=== PATIENT | female | born 1970 | race Caucasian/White ===

== ENCOUNTER → 2017-09-01 14:57 | Outpatient (CLI) | payer BC, SELFPAY ==
[2017-09-01 15:47] LABS: Absolute Lymphocyte Count 2.11 X10^3/ul (0.83-4.51); Absolute Neutrophil Count 5.8 X10^3/uL (2.0-7.7); Basophil# 0.03 X10^3/uL; Basophil% 0.4 % (0-1); Eosinophil# 0.06 X10^3/uL; Eosinophils% 0.7 % (0-5); Hematocrit 38.4 % (37-47); Lymphocyte # 2.11 X10^3/ul (4.0); Lymphocyte % 24.6 % (19-41); Mean Corp Hgb Conc 31.3 g/gl (32-36); Mean Corpuscular Hgb 28.2 pg (27.0-32.0); Mean Corpuscular Volume 90.4 fL (81-99); Mean Platelet Vol. 9.3 fl (6.2-12.0); Monocyte# 0.57 X10^3/uL; Monocyte% 6.7 % (0-10); Neutrophil % 67.6 % (47-70); POSITIVE COUNT NO; POSITIVE DIFFERENTIAL NO; POSITIVE MORPHOLOGY NO; Platelet Count 334 K/mm3 (150-450); RBC Distribution Width SD 48.7 fl (35.1-43.9); Red Blood Count 4.25 M/mm3 (4.2-5.4); White Blood Count 8.6 K/mm3 (4.4-11.0)
[2017-09-01 16:06] LABS: ALB/GLOB Ratio 0.9 RATIO (0.9-2.4); AST(SGOT) 10 U/L (15-37); Alanine Aminotransfer ALT/SGPT 14 U/L (13-56); Albumin, Serum 3.5 g/dL (3.2-5.0); Alkaline Phosphatase 63 U/L (45-117); Anion Gap 8 (5-15); BUN 11 mg/dL (7-18); BUN/Creat Ratio 16.6 RATIO (10-20); Calcium,Total 8.6 mg/dL (8.5-10.1); Chloride 99 mmol/L (98-107); Creatinine, Serum 0.66 mg/dL (0.55-1.02); EST Glomerular Filtration Rate 103 mL/min (>60); Est Glom Filt Rate - Afr Amer 124 mL/min (>60); Glucose 84 mg/dL (74-106); Potassium 4.1 mmol/L (3.5-5.1); Protein, Total 7.5 g/dL (6.4-8.2); Sodium Level 135 mmol/L (136-145)
== END ==
PROVIDERS: Family Provider Family Medicine; PCP Family Medicine; Visit Provider Internal Medicine Rheumatology
DX: M05.79 Rheumatoid arthritis with rheumatoid factor of multiple sites without organ or systems involvement (principal); Z79.899 Other long term (current) drug therapy; M21.40 Flat foot [pes planus] (acquired), unspecified foot
CPT/HCPCS: 36415; 80053; 85025

== ENCOUNTER → 2017-11-09 16:38 | Outpatient (CLI) | payer BC, SELFPAY ==
[2017-11-09 18:00] LABS: Absolute Lymphocyte Count 2.11 X10^3/ul (0.83-4.51); Absolute Neutrophil Count 7.8 X10^3/uL (2.0-7.7); Basophil# 0.03 X10^3/uL; Basophil% 0.3 % (0-1); Eosinophils% 0.9 % (0-5); Hematocrit 34.9 % (37-47); Hemoglobin 11.1 g/dl (12.0-15.0); Lymphocyte # 2.11 X10^3/ul (4.0); Lymphocyte % 19.4 % (19-41); Mean Corp Hgb Conc 31.8 g/gl (32-36); Mean Corpuscular Hgb 29.5 pg (27.0-32.0); Mean Corpuscular Volume 92.8 fL (81-99); Mean Platelet Vol. 9.6 fl (6.2-12.0); Monocyte# 0.87 X10^3/uL; Neutrophil # 7.75 X10^3/uL (2.7-7.7); Neutrophil % 71.1 % (47-70); Platelet Count 359 K/mm3 (150-450); RBC Distribution Width CV 14.6 % (11.6-14.6); RBC Distribution Width SD 47.1 fl (35.1-43.9); Red Blood Count 3.76 M/mm3 (4.2-5.4); White Blood Count 10.9 K/mm3 (4.4-11.0)
[2017-11-09 18:17] LABS: POSITIVE COUNT NO; POSITIVE DIFFERENTIAL NO; POSITIVE MORPHOLOGY NO
== END ==
PROVIDERS: Family Provider Family Medicine; PCP Family Medicine; Visit Provider Internal Medicine Rheumatology
DX: M05.79 Rheumatoid arthritis with rheumatoid factor of multiple sites without organ or systems involvement (principal); Z79.899 Other long term (current) drug therapy; M21.40 Flat foot [pes planus] (acquired), unspecified foot
CPT/HCPCS: 36415; 80053; 85025

== ENCOUNTER → 2017-11-10 16:50 | Outpatient (CLI) | payer BC, SELFPAY ==
[2017-11-10 18:36] LABS: AST(SGOT) 16 U/L (15-37); Alanine Aminotransfer ALT/SGPT 18 U/L (13-56); Albumin, Serum 3.7 g/dL (3.2-5.0); Alkaline Phosphatase 82 U/L (45-117); Anion Gap 10 (5-15); BUN 11 mg/dL (7-18); BUN/Creat Ratio 15.3 RATIO (10-20); Calcium,Total 8.9 mg/dL (8.5-10.1); Chloride 99 mmol/L (98-107); Creatinine, Serum 0.72 mg/dL (0.55-1.02); EST Glomerular Filtration Rate 94 mL/min (>60); Est Glom Filt Rate - Afr Amer 113 mL/min (>60); Globulin 3.6 g/dL (2.2-4.2); Glucose 76 mg/dL (74-106); Potassium 4.4 mmol/L (3.5-5.1); Protein, Total 7.3 g/dL (6.4-8.2); Sodium Level 138 mmol/L (136-145)
== END ==
PROVIDERS: Family Provider Family Medicine; PCP Family Medicine; Visit Provider Internal Medicine Rheumatology
DX: M05.79 Rheumatoid arthritis with rheumatoid factor of multiple sites without organ or systems involvement (principal); Z79.899 Other long term (current) drug therapy; M21.40 Flat foot [pes planus] (acquired), unspecified foot
CPT/HCPCS: 36415; 80053

== ENCOUNTER → 2018-07-06 08:22 | Outpatient (CLI) | payer BC, SELFPAY ==
--- NOTE | 2018-07-06 08:25 | BI_ITS ---
MAMMOGRAPHY - BILATERAL SCREENING REASON FOR EXAM: Female, 47 years old. Routine annual screening examination. PERTINENT HISTORY: Aunt with breast cancer. Remote bilateral breast reduction surgery. TECHNIQUE: Digital bilateral breast leonel (3D mammographic acquisition) in the CC and MLO projections. 2-D mediolateral oblique (MLO) and craniocaudad (CC) views of both breasts were obtained. CAD: Full Field Digital Mammography with Computer Added Detection was performed. COMPARISON: Comparison is made with prior study dated March 07, 2017. FINDINGS: Breast Composition: There are scattered areas of fibroglandular density. There are no dominant masses or suspicious calcifications. Stable appearance of the small bilateral axillary lymph nodes. Stable 6 mm x 7 mm well-defined nodule in the deep midportion of the right breast. This is unchanged. On prior sonogram, this was demonstrated to be a small lymph node. No other significant abnormalities are identified. There has been no significant change since the prior study. BI/SCREENING MAMM (CAD), BILAT IMPRESSION: Stable bilateral screening mammogram. Yearly follow-up mammogram recommended. (A) ASSESSMENT CATEGORY: BIRADS Category 2: Benign. A letter regarding these results will be sent to the patient by the facility within 30 days. Approximately 10% of breast cancers are not detected by mammography. A normal mammogram should not delay biopsy of a clinically suspicious abnormality. [id number] Electronically Signed: Matteo Garrido MD at 10:22 EST Tel [phone], Service support ,
--- OUTSIDE RECORDS SUMMARY | 2018-08-21 20:16 | XMS RPT_ITS ---
:1970 Author Organization [facility] Care Team Providers Name Role Phone Laurie Cueva Attending Unavailable Laurie Cuvea Primary Care Unavailable Candace Sprague Attending Unavailable Laurie Cueva Primary Care Unavailable Candace Sprague Attending Unavailable Candace Sprague Referring Unavailable Laurie Cueva Primary Care Unavailable Candace Sprague Attending Unavailable Laurie Cueva Primary Care Unavailable PROBLEMS PROBLEMS DATE TYPE CONDITION / CODE ATTENDING STATUS SOURCE 11/09/2017 Unknown Z79.899 - Other Candace Sprague Active [facility] (current[facility] drug Hospital therapy / Repository Z79.899(ICD-10) 11/09/2017 Unknown M05.79 - Candace Sprague Active [facility] 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 Repository of multiple sites without organ or systems involvement / M05.79(ICD-10) 11/09/2017 Unknown M21.40 - Flat Candace Sprague Active [facility] [facility] [pes planus] Community (acquired), Hospital unspecified foot Repository / M21.40(ICD-10) PROCEDURES PROCEDURES No Procedure Records FoundRESULTS RESULTS SCREENING MAMM (CAD), Observed: 07/06/2018 Status: F Source: [place] 8:25 AM [facility] REPOSITORY [facility] Imaging Services [address] [address] SCREENING MAMM (CAD), BILAT MR#: [id number] Acct: [id number] Name: STEPHAN ENGLE Rep #: [id number] : 1970 F 47 From: Matteo Garrido MD PCP: Laurie Cueva MD Status: REG CLI Study: SCREENING MAMM (CAD), BILAT Date of Exam: 07/06/18 Exam# [id number] Ordering Dr: Laurie Cueva MD MAMMOGRAPHY - BILATERAL SCREENING REASON FOR EXAM: Female, 47 years old. Routine annual screening examination. PERTINENT HISTORY: Aunt with breast cancer. Remote bilateral breast reduction surgery. TECHNIQUE: Digital bilateral breast leonel (3D mammographic acquisition) in the CC and MLO projections. 2-D mediolateral oblique (MLO) and craniocaudad (CC) views of both breasts were obtained. CAD: Full Field Digital Mammography with Computer Added Detection was performed. COMPARISON: Comparison is made with prior study dated March 07, 2017. FINDINGS: Breast Composition: There are scattered areas of fibroglandular density. There are no dominant masses or suspicious calcifications. Stable appearance of the small bilateral axillary lymph nodes. Stable 6 mm x 7 mm well-defined nodule in the deep midportion of the right breast. This is unchanged. On prior sonogram, this was demonstrated to be a small lymph node. No other significant abnormalities are identified. There has been no significant change since the prior study. BI/SCREENING MAMM (CAD), BILAT IMPRESSION: Stable bilateral screening mammogram. Yearly follow-up mammogram recommended. (A) ASSESSMENT CATEGORY: BIRADS Category 2: Benign. A letter regarding these results will be sent to the patient by the facility within 30 days. Approximately 10% of breast cancers are not detected by mammography. A normal mammogram should not delay biopsy of a clinically suspicious abnormality. [id number] Electronically Signed: Matteo Garrido MD at 10:22 EST Tel [phone], Service support , CC: Laurie Cueva MD Soil Engineer: Signed COMPREHENSIVE METABOLIC Collected: 11/10/2017 Status: F Source: LY [place] 4:57 PM [facility] REPOSITORY Order Comment: REDRAW DO NOT CHARGE VRO TYPE CODE TESTS RESULT OUT OF RANGE REFERENCE UNITS LAB L501.0100 74-106 mg/dL Normal GLU 76 Result Comment: Please note revised GLUCOSE reference range effective 2017. LAB L501.1000 7-18 mg/dL Normal BUN 11 LAB L501.1100 0.55-1.02 mg/dL Normal CREAT,SERUM 0.72 Result Comment: The validity of the calculated GFR AND GFRAA in patients over 70 years has not been determined. Clinical correlation is essential. LAB L501.1110 >60 mL/min Normal EST GFR 94 Result Comment: Non- GFR Calc LAB L501.1115 >60 mL/min Normal EST GFR - AA 113 Result Comment: GFR Calc LAB L501.1300 10-20 RATIO Normal BUN/CRE 15.3 LAB L501.1500 6.4-8.2 g/dL T Normal PROT 7.3 LAB L501.1800 3.2-5.0 g/dL Normal ALB 3.7 LAB L501.1950 2.2-4.2 g/dL Normal GLOB 3.6 LAB L501.2000 0.9-2.4 RATIO Normal A/G 1.0 LAB L501.2200 8.5-10.1 mg/dL CA Normal 8.9 LAB L501.4100 15-37 U/L Normal AST 16 LAB L501.4305 45-117 U/L Normal ALK P 82 LAB L501.4405 13-56 U/L Normal ALT 18 LAB L501.4600 0.20-1.00 mg/dL Low T BILI 0.10 LAB L501.5300 136-145 mmol/L NA Normal 138 LAB L501.5600 3.5-5.1 mmol/L K Normal 4.4 LAB L501.5900 98-107 mmol/L CL Normal 99 LAB L501.6100 21.0-32.0 mmol/L Normal CO2 29.0 LAB L501.6200 5-15 Normal GAP 10 Performed By: #### L500.4050 #### [facility] [address] [place], [address] CBC W/DIFF, AUTOMATED Collected: 11/09/2017 Status: F Source: [place] 4:43 PM [facility] REPOSITORY TYPE CODE TESTS RESULT OUT OF RANGE REFERENCE UNITS LAB L100.1000 4.4-11.0 K/mm3 Normal WBC 10.9 LAB L100.1200 4.2-5.4 M/mm3 Low RBC 3.76 LAB L100.1300 12.0-15.0 g/dl Low HGB 11.1 LAB L100.1400 37-47 % Low HCT 34.9 LAB L100.1500 81-99 fL Normal MCV 92.8 LAB L100.1600 27.0-32.0 pg Normal MCH 29.5 LAB L100.1700 32-36 g/gl Low MCHC 31.8 LAB L100.1810 11.6-14.6 % Normal RDW CV 14.6 LAB L100.1820 35.1-43.9 fl High RDW SD 47.1 LAB L100.1900 150-450 K/mm3 Normal PLT 359 LAB L100.2000 6.2-12.0 fl Normal MPV 9.6 LAB L100.2100 47-70 % High NEUT% 71.1 LAB L100.2200 19-41 % Normal LY% 19.4 LAB L100.2300 0-10 % Normal MONO% 8.0 LAB L100.2400 0-5 % Normal EO% 0.9 LAB L100.2500 0-1 % Normal BASO% 0.3 LAB L100.2550 0.0-0.9 % Normal IM GRAN % 0.300 Result Comment: IG% - Immature Granulocytes (promyelocytes, myelocytes and metamyelocytes) > 1% indicates that a LEFT SHIFT is Present. LAB L100.2620 2.0-7.7 X10 3/uL High Absolute Neut 7.8 LAB L100.2720 0.83-4.51 X10 3/ul Normal Absolute Lymph 2.11 Performed By: #### L100.0100 #### [facility] [place], [address] CBC W/DIFF, AUTOMATED Collected: 09/01/2017 Status: F Source: [place] 3:00 PM [facility] REPOSITORY TYPE CODE TESTS RESULT OUT OF RANGE REFERENCE UNITS LAB L100.1000 4.4-11.0 K/mm3 Normal WBC 8.6 LAB L100.1200 4.2-5.4 M/mm3 Normal RBC 4.25 LAB L100.1300 12.0-15.0 g/dl Normal HGB 12.0 LAB L100.1400 37-47 % Normal HCT 38.4 LAB L100.1500 81-99 fL Normal MCV 90.4 LAB L100.1600 27.0-32.0 pg Normal MCH 28.2 LAB L100.1700 32-36 g/gl Low MCHC 31.3 LAB L100.1810 11.6-14.6 % High RDW CV 15.0 LAB L100.1820 35.1-43.9 fl High RDW SD 48.7 LAB L100.1900 150-450 K/mm3 Normal PLT 334 LAB L100.2000 6.2-12.0 fl Normal MPV 9.3 LAB L100.2100 47-70 % Normal NEUT% 67.6 LAB L100.2200 19-41 % Normal LY% 24.6 LAB L100.2300 0-10 % Normal MONO% 6.7 LAB L100.2400 0-5 % Normal EO% 0.7 LAB L100.2500 0-1 % Normal BASO% 0.4 LAB L100.2550 0.0-0.9 % Normal IM GRAN % 0.000 Result Comment: IG% - Immature Granulocytes (promyelocytes, myelocytes and metamyelocytes) > 1% indicates that a LEFT SHIFT is Present. LAB L100.2620 2.0-7.7 X10 3/uL Normal Absolute Neut 5.8 LAB L100.2720 0.83-4.51 X10 3/ul Normal Absolute Lymph 2.11 Performed By: #### L100.0100 #### [facility] [place], [address] COMPREHENSIVE METABOLIC Collected: 09/01/2017 Status: F Source: LY [facility] 3:00 PM [facility] REPOSITORY TYPE CODE TESTS RESULT OUT OF RANGE REFERENCE UNITS LAB L501.0100 74-106 mg/dL Normal GLU 84 Result Comment: Please note revised GLUCOSE reference range effective 2017. LAB L501.1000 7-18 mg/dL Normal BUN 11 LAB L501.1100 0.55-1.02 mg/dL Normal CREAT,SERUM 0.66 Result Comment: The validity of the calculated GFR AND GFRAA in patients over 70 years has not been determined. Clinical correlation is essential. LAB L501.1110 >60 mL/min Normal EST GFR 103 Result Comment: Non- GFR Calc LAB L501.1115 >60 mL/min Normal EST GFR - AA 124 Result Comment: GFR Calc LAB L501.1300 10-20 RATIO Normal BUN/CRE 16.6 LAB L501.1500 6.4-8.2 g/dL T Normal PROT 7.5 LAB L501.1800 3.2-5.0 g/dL Normal ALB 3.5 LAB L501.1950 2.2-4.2 g/dL Normal GLOB 4.0 LAB L501.2000 0.9-2.4 RATIO Normal A/G 0.9 LAB L501.2200 8.5-10.1 mg/dL CA Normal 8.6 LAB L501.4100 15-37 U/L Low AST 10 LAB L501.4305 45-117 U/L Normal ALK P 63 LAB L501.4405 13-56 U/L Normal ALT 14 Result Comment: Please note revised ALT reference range effective 2017. LAB L501.4600 0.20-1.00 mg/dL Normal T BILI 0.20 LAB L501.5300 136-145 mmol/L Low NA 135 LAB L501.5600 3.5-5.1 mmol/L Normal K 4.1 LAB L501.5900 98-107 mmol/L Normal CL 99 LAB L501.6100 21.0-32.0 mmol/L Normal CO2 28.0 LAB L501.6200 5-15 Normal GAP 8 Performed By: #### L500.4050 #### [facility] [address] [place], [address] ALLERGIES ALLERGIES DATE TYPE / CODE NAME / CODE REACTION SEVERITY SOURCE 10/19/2016 Drug morphine/F00 Other Unknown [facility] Allergy/4160 [id number]([facility] 79893(SNOMED RM) Repository CT) 10/18/2016 Drug codeine/F006 Other Unknown [facility] Allergy/4160 016085([facility] [address]1965(SNOMED M) Repository CT) ENCOUNTERS ENCOUNTERS ADMIT/DISCHARGE ACCOUNT ADMITTING ENCOUNTER LOCATION SOURCE NUMBER CLASS 07/06/2018 [id number] Ambulatory [place] [facility] 6 [facility] ing:OPBI Repository 11/10/2017 [id number] Ambulatory [facility] [place] 5 [facility] ing:MTLAB Repository 11/09/2017 [id number] Ambulatory [facility] [place] 8 [facility] ing:MTLAB Repository 09/01/2017 [id number] Ambulatory [place] [facility] 7 [facility] ing:MFPLAB Repository PAYERS PAYERS ENCOUNTER GUARANTOR PAYER SUBSCRIBER SOURCE 07/06/2018 STEPHAN Garduno Primary STEPHAN Garduno [place] [id number] Insurance:ANTHEMPolic WHALEYDOB: [facility] [place] y [place]: [id number] [id number] Repository [address]Ynn: [phone] bridget Date:[id number] [phone] ([facility] [address] [place] [address]LW: 07/06/2018 Secondary NOT GIVENUNK Ly Insurance:SELF PAY [facility] Number: Effective Repository Date:2018-05-23 11/10/2017 STEPHAN Garduno Primary STEPHAN D Ly [id number] Insurance:ANTHEMPolic WHALEYDOB: [facility] y Number: [id number] [id number] Repository [address]Bed: [phone] bridget Date:[id number] [phone] () [address], [place] [address]EB: 11/10/2017 Secondary NOT GIVENUNK Ly Insurance:SELF PAY [facility] Number: Effective Repository Date:2017-11-10 11/09/2017 STEPHAN D Primary STEPHAN D Ly [id number] Insurance:ANTHEMPolic WHALEYDOB: [facility] [place] y Number: [id number] [id number] Repository [address]Ker: [phone] bridget Date:[id number] [phone] () [address], [place] [address]CC: 11/09/2017 Secondary NOT GIVENUNK [place] Insurance:SELF PAY [facility] Number: Effective Repository Date:2017-11-09 09/01/2017 Stephan [id number] Primary Stephan WhaleyDOB: [place] Insurance:ANTHEMPolic [id number] Number: [facility] [address]Hbh: (803) [id number] Repository [phone] () bridget Date:6682-14-97XS [address], [place] [address]KC: 09/01/2017 Secondary NOT GIVENUNK [place] Insurance:SELF PAY [facility] Number: Effective Repository Date:2017-09-01
== END ==
PROVIDERS: Family Provider Family Medicine; PCP Family Medicine; Visit Provider Family Medicine
DX: Z12.31 Encounter for screening mammogram for malignant neoplasm of breast (principal)
CPT/HCPCS: 77063; 77067

== ENCOUNTER → 2019-08-15 15:43 | Outpatient (CLI) | payer BC, SELFPAY ==
--- NOTE | 2019-08-15 15:45 | BI_ITS ---
MAMMOGRAPHY - BILATERAL SCREENING REASON FOR EXAM: Female, 48 years old. Routine annual screening examination. PERTINENT HISTORY: Non-contributory. History of bilateral breast reduction surgery. TECHNIQUE: Digital bilateral breast rosas (3D mammographic acquisition) in the CC and MLO projections. 2-D mediolateral oblique (MLO) and craniocaudad (CC) views of both breasts were obtained. CAD: Full Field Digital Mammography with Computer Added Detection was performed. COMPARISON: Comparison is made with prior study dated July 06, 2018 and March 07, 2017. FINDINGS: Breast Composition: There are scattered areas of fibroglandular density. There are no dominant masses or suspicious calcifications. Stable small bilateral axillary lymph nodes. Stable 6 mm x 7 mm well-defined nodule in the deep midportion of the right breast. No other significant abnormalities are identified. There has been no significant change since the prior study. BI/SCREEN MAMM (CAD) W/ROSAS BILAT IMPRESSION: Stable bilateral screening mammogram. Yearly follow-up mammogram recommended. (A) ASSESSMENT CATEGORY: BIRADS Category 2: Benign. A letter regarding these results will be sent to the patient by the facility within 30 days. Approximately 10% of breast cancers are not detected by mammography. A normal mammogram should not delay biopsy of a clinically suspicious abnormality. [id number] Electronically Signed: Matteo Garrido, at 8:28 EST , Service support ,
== END ==
PROVIDERS: Family Provider Family Medicine; PCP Family Medicine; Referring Provider Family Medicine; Visit Provider Family Medicine
DX: Z12.31 Encounter for screening mammogram for malignant neoplasm of breast (principal)
CPT/HCPCS: 77063; 77067

== ENCOUNTER 2019-08-20 07:30 | Emergency (ER) | payer BC, SELFPAY ==
[2019-08-20 07:31] VITALS: BP 161/92; PULSE 94; RESP 18; TEMP 36.6; O2SAT 98; BMI 43.4
--- NOTE | 2019-08-20 07:44 | ED.VISSUMM ---
- ER Visit Summary Date of Service: 08/20/19 Chief Complaint: Vaginal bleeding History of Present Illness: The patient is a 48 F status post hysterectomy 17 years ago. One ovary removed on a another surgery. Initial hysterectomy was due to abnormal vaginal bleeding. Patient states she is not had any problems recently she had vaginal bleeding and cramping this morning. States she bled about a shot glass worth of blood. She has had minor bleeding within the last 2 years was seen by a gas plant worker at [facility] and it sounds like she had bleeding from her prior vaginal cuff. She is on no blood thinners. She denies any other sources of bleeding or bruising. Physical Examination: Well-appearing middle-aged female. No acute distress. Vital signs are stable afebrile. Accompanied by her at bedside. H EENT exam normal. Neck nontender. Lungs clear to auscultation bilaterally. Heart regular rhythm no murmur. Abdomen is soft. Nondistended. Normal bowel sounds. No peritoneal signs. She has very minimal suprapubic discomfort to palpation. There is no obvious masses. Patient is moving all 4 extremities. No edema. No bruising. Neurologically she is awake alert with no focal motor deficits. Test Results: None Emergency Department Course and Treatment: Pelvic exam will be done with a female nurse present in the room. No vaginal lesions. External exam unremarkable. On speculum exam there is a small amount of blood in the vaginal vault. Not heavy bleeding. No clots. There appear to be a source around 12:00 on the vaginal cuff. I did not see any pulsatile bleeding. It was darker blood. On bimanual exam she status post hysterectomy. It is nontender. There is no masses. Treatment Plan: I spoke to Dr. Anson Sethi of [facility]. She states the patient can follow-up with her. Disposition: Discharge Impression: Vaginal bleeding status post hysterectomy appearing to be coming from the vaginal cuff. This note was generated with OnHand dictation software. It may contain incorrect words, spelling, and punctuation that were not noted in review of the chart prior to signing ED Disposition - Plan for ED Patient: Referrals: Laurie Cueva MD [Primary Care Provider] -
--- NOTE | 2019-08-20 10:41 | DCINST.ED_ITS ---
ED Disposition - Plan for ED Patient: Disposition: Home or Assisted Living Referrals: Alessandra Joel MD [STAFF PHYSICIAN] - As soon as possible Additional Instructions: Tampons for the bleeding. Follow-up with Dr. Anson Sethi of [facility] or Dr. Kolby Ingram whomever he can get in with sooner. If the bleeding gets a lot worse such as clots or you become lightheaded then return to the ER otherwise follow-up for [facility] evaluation
== END 2019-08-20 11:40 | disposition home or self-care (01) ==
PROVIDERS: Emergency Provider Emergency Medicine; PCP Family Medicine
DX: N93.9 Abnormal uterine and vaginal bleeding, unspecified (principal); Z90.710 Acquired absence of both cervix and uterus; M19.90 Unspecified osteoarthritis, unspecified site
CPT/HCPCS: 99282

== ENCOUNTER → 2019-08-22 13:29 | Outpatient (CLI) | payer BC, SELFPAY ==
[2019-08-20 07:31] VITALS: BMI 43.4
[2019-08-22 15:41] LABS: Hematocrit 39.3 % (37-47); Hemoglobin 12.4 g/dL (12.0-15.0); Mean Corp Hgb Conc 31.6 g/dL (32-36); Mean Corpuscular Hgb 27.8 pg (27.0-32.0); Mean Corpuscular Volume 88.1 fL (81-99); Mean Platelet Vol. 9.4 fl (6.2-12.0); Platelet Count 365 K/mm3 (150-450); RBC Distribution Width CV 13.2 % (11.6-14.6); RBC Distribution Width SD 42.9 fl (35.1-43.9); Red Blood Count 4.46 M/mm3 (4.2-5.4); White Blood Count 8.6 K/mm3 (4.4-11.0)
[2019-08-24 17:43] LABS: Cancer Antigen 125 46.6 U/mL (0.0-38.1)
== END ==
PROVIDERS: Visit Provider Obstetrics & Gynecology
DX: N83.201 Unspecified ovarian cyst, right side (principal)
CPT/HCPCS: 36415; 85027; 86304

== ENCOUNTER → 2020-06-22 10:02 | Outpatient (CLI) | payer BC, SELFPAY ==
[2020-06-22 12:12] LABS: Absolute Lymphocyte Count 1.86 X10^3/uL (0.83-4.51); Absolute Neutrophil Count 5.7 X10^3/uL (2.0-7.7); Basophil# 0.07 X10^3/uL; Basophil% 0.8 % (0-1); Eosinophil# 0.11 X10^3/uL; Eosinophils% 1.3 % (0-5); Erythrocyte Sedimentation Rate 31 mm/hr (0-20); Hematocrit 40.3 % (37-47); Hemoglobin 12.5 g/dL (12.0-15.0); Lymphocyte # 1.86 X10^3/ul (4.0); Lymphocyte % 22.4 % (19-41); Mean Corpuscular Hgb 27.3 pg (27.0-32.0); Mean Platelet Vol. 9.9 fl (6.2-12.0); Monocyte# 0.54 X10^3/uL; Monocyte% 6.5 % (0-10); NRBC Flagged by Analyzer 0 % (0-5); Neutrophil % 68.8 % (47-70); Platelet Count 334 K/mm3 (150-450); RBC Distribution Width CV 13.4 % (11.6-14.6); RBC Distribution Width SD 43.4 fl (35.1-43.9); Red Blood Count 4.58 M/mm3 (4.2-5.4); White Blood Count 8.3 K/mm3 (4.4-11.0)
[2020-06-22 12:23] LABS: ALB/GLOB Ratio 0.8 RATIO (0.9-2.4); AST(SGOT) 21 U/L (15-37); Alanine Aminotransfer ALT/SGPT 23 U/L (13-56); Albumin, Serum 3.4 g/dL (3.2-5.0); Alkaline Phosphatase 98 U/L (45-117); Anion Gap 6 (5-15); BUN 6 mg/dL (7-18); BUN/Creat Ratio 8.6 RATIO (10-20); Calcium,Total 9.2 mg/dL (8.5-10.1); Chloride 102 mmol/L (98-107); EST Glomerular Filtration Rate 95 mL/min (>60); Est Glom Filt Rate - Afr Amer 115 mL/min (>60); Globulin 4.3 g/dL (2.2-4.2); Glucose 119 mg/dL (74-106); Potassium 3.8 mmol/L (3.5-5.1); Protein, Total 7.7 g/dL (6.4-8.2); Sodium Level 138 mmol/L (136-145)
[2020-06-22 12:59] LABS: Hepatitis B Surface Antibody Non-Reactive; Hepatitis B Surface Antigen Non-Reactive (Nonreactive); Hepatitis C Antibody Non-Reactive (Nonreactive)
[2020-06-24 16:01] LABS: CCP IgG Antibodies 19 units (0-19); Hepatitis B Core AB IgM Negative (Negative)
== END ==
PROVIDERS: PCP Family Medicine; Referring Provider Family Medicine; Visit Provider Internal Medicine Rheumatology
DX: M05.79 Rheumatoid arthritis with rheumatoid factor of multiple sites without organ or systems involvement (principal); Z79.899 Other long term (current) drug therapy; M21.41 Flat foot [pes planus] (acquired), right foot
CPT/HCPCS: 36415; 80053; 85025; 85652; 86140; 86200; 86431; 86705; 86706; 86803; 87340

== ENCOUNTER → 2020-08-10 12:22 | Outpatient (CLI) | payer BC, SELFPAY ==
[2020-08-10 15:48] LABS: Absolute Lymphocyte Count 2.38 X10^3/uL (0.83-4.51); Absolute Neutrophil Count 4.8 X10^3/uL (2.0-7.7); Basophil# 0.06 X10^3/uL; Basophil% 0.8 % (0-1); Eosinophils% 1.3 % (0-5); Hematocrit 39.3 % (37-47); Hemoglobin 12.6 g/dL (12.0-15.0); Lymphocyte # 2.38 X10^3/ul (4.0); Lymphocyte % 30.4 % (19-41); Mean Corp Hgb Conc 32.1 g/dL (32-36); Mean Corpuscular Hgb 27.7 pg (27.0-32.0); Mean Corpuscular Volume 86.4 fL (81-99); Mean Platelet Vol. 9.9 fl (6.2-12.0); Monocyte# 0.45 X10^3/uL; Monocyte% 5.7 % (0-10); NRBC Flagged by Analyzer 0 % (0-5); Neutrophil # 4.82 X10^3/uL (2.7-7.7); Neutrophil % 61.4 % (47-70); Platelet Count 368 K/mm3 (150-450); RBC Distribution Width CV 14.3 % (11.6-14.6); RBC Distribution Width SD 44.3 fl (35.1-43.9); Red Blood Count 4.55 M/mm3 (4.2-5.4); White Blood Count 7.8 K/mm3 (4.4-11.0)
[2020-08-10 16:15] LABS: ALB/GLOB Ratio 0.8 RATIO (0.9-2.4); AST(SGOT) 17 U/L (15-37); Alanine Aminotransfer ALT/SGPT 19 U/L (13-56); Albumin, Serum 3.5 g/dL (3.2-5.0); Alkaline Phosphatase 78 U/L (45-117); Anion Gap 10 (5-15); BUN 9 mg/dL (7-18); BUN/Creat Ratio 10.7 RATIO (10-20); Calcium,Total 9.1 mg/dL (8.5-10.1); Chloride 102 mmol/L (98-107); Creatinine, Serum 0.84 mg/dL (0.55-1.02); EST Glomerular Filtration Rate 77 mL/min (>60); Est Glom Filt Rate - Afr Amer 94 mL/min (>60); Globulin 4.3 g/dL (2.2-4.2); Glucose 188 mg/dL (74-106); Potassium 3.8 mmol/L (3.5-5.1); Protein, Total 7.8 g/dL (6.4-8.2); Sodium Level 137 mmol/L (136-145)
== END ==
PROVIDERS: PCP Family Medicine; Referring Provider Internal Medicine Rheumatology; Visit Provider Internal Medicine Rheumatology
DX: M05.79 Rheumatoid arthritis with rheumatoid factor of multiple sites without organ or systems involvement (principal); Z79.899 Other long term (current) drug therapy; M21.41 Flat foot [pes planus] (acquired), right foot
CPT/HCPCS: 36415; 80053; 85025

== ENCOUNTER → 2020-09-29 16:14 | Outpatient (CLI) | payer BC, SELFPAY ==
--- NOTE | 2020-09-29 16:17 | RAD_ITS ---
STUDY: X-RAY - LEFT FOOT CLINICAL: Female, 49 years old. PAIN TECHNIQUE: 3 view(s) of the foot. COMPARISON: None. FINDINGS: Postsurgical changes of the calcaneus with a single surgical screw. There are irregularities and erosions seen at the insertion of Achilles tendon probably related to previous or chronic Achilles injury. Moderate plantar spur. Normal visualized subtalar, talonavicular, calcaneocuboid, tarsal and tarsometatarsal articulations. Normal metatarsi. Normal metatarsophalangeal joint of the great toe. Normal tibial and fibular sesamoid bones. Normal interphalangeal joint of the great toe. Normal phalanges of the great toe. Normal second through fifth metatarsophalangeal joints. Normal interphalangeal joints and phalanges of the lesser toes. The soft tissue structures are unremarkable. RAD/Foot min 3 Views IMPRESSION: No gross acute fracture or dislocation. Extensive postsurgical changes of the calcaneus probably related to previous Achilles pathology. Electronically Signed: Bartolo Gutierrez MD at 0:02 EST , Service support ,
--- NOTE | 2020-09-29 16:17 | RAD_ITS ---
EXAM: XR CHEST, 2 VIEWS CLINICAL INDICATION: PAIN TECHNIQUE: Frontal and lateral views of the chest. rScriptor report generation technology utilized. COMPARISON: None. FINDINGS: LUNGS AND PLEURAL SPACES: Unremarkable. No consolidation or edema. No pneumothorax. No effusion. HEART: Unremarkable. Cardiac silhouette not enlarged. MEDIASTINUM: Central airways and mediastinal contour are unremarkable. BONES/JOINTS: Unremarkable. SOFT TISSUES: Unremarkable. RAD/Chest PA and Lateral IMPRESSION: No radiographic evidence of acute cardiopulmonary disease. Electronically Signed: Bartolo Gutierrez MD at 0:00 EST , Service support ,
[2020-09-29 17:45] LABS: Absolute Lymphocyte Count 1.62 X10^3/uL (0.83-4.51); Absolute Neutrophil Count 10.2 X10^3/uL (2.0-7.7); Basophil# 0.05 X10^3/uL; Basophil% 0.4 % (0-1); Eosinophil# 0.01 X10^3/uL; Eosinophils% 0.1 % (0-5); Hematocrit 40.2 % (37-47); Hemoglobin 12.4 g/dL (12.0-15.0); Lymphocyte # 1.62 X10^3/ul (4.0); Lymphocyte % 13.1 % (19-41); Mean Corp Hgb Conc 30.8 g/dL (32-36); Mean Corpuscular Hgb 27.4 pg (27.0-32.0); Mean Corpuscular Volume 88.9 fL (81-99); Mean Platelet Vol. 9.3 fl (6.2-12.0); Monocyte% 3.2 % (0-10); NRBC Flagged by Analyzer 0 % (0-5); Neutrophil # 10.21 X10^3/uL (2.7-7.7); Neutrophil % 82.7 % (47-70); Platelet Count 383 K/mm3 (150-450); RBC Distribution Width SD 48.4 fl (35.1-43.9); Red Blood Count 4.52 M/mm3 (4.2-5.4); White Blood Count 12.4 K/mm3 (4.4-11.0)
[2020-09-29 18:20] LABS: ALB/GLOB Ratio 0.9 RATIO (0.9-2.4); AST(SGOT) 21 U/L (15-37); Alanine Aminotransfer ALT/SGPT 21 U/L (13-56); Albumin, Serum 3.8 g/dL (3.2-5.0); Alkaline Phosphatase 83 U/L (45-117); Anion Gap 7 (5-15); BUN 9 mg/dL (7-18); BUN/Creat Ratio 11.2 RATIO (10-20); Chloride 103 mmol/L (98-107); Creatinine, Serum 0.81 mg/dL (0.55-1.02); EST Glomerular Filtration Rate 81 mL/min (>60); Est Glom Filt Rate - Afr Amer 98 mL/min (>60); Globulin 4.1 g/dL (2.2-4.2); Glucose 179 mg/dL (74-106); Potassium 4.1 mmol/L (3.5-5.1); Protein, Total 7.9 g/dL (6.4-8.2); Sodium Level 137 mmol/L (136-145)
[2020-10-03 03:07] LABS: QNTFERON TB Mitogen Value > 10.00 IU/mL (.); QNTFERON TB Nil Value 0.05 IU/mL (.); QNTFERON TB1+ Ag Value 0.06 IU/mL (.); QNTFERON TB2+ Ag Value 0.06 IU/mL (.)
[2020-10-03 08:55] LABS: QNTIFERON TB Positive Criteria Negative (Negative)
== END ==
PROVIDERS: PCP Family Medicine; Referring Provider Internal Medicine Rheumatology; Visit Provider Internal Medicine Rheumatology
DX: M05.79 Rheumatoid arthritis with rheumatoid factor of multiple sites without organ or systems involvement (principal); Z79.899 Other long term (current) drug therapy; M21.41 Flat foot [pes planus] (acquired), right foot
CPT/HCPCS: 36415; 71046; 73630; 80053; 85025; 86480

== ENCOUNTER 2020-11-05 11:20 | Outpatient (RCR) | payer BC, SELFPAY | END 2020-12-29 23:59 | LOC: IMMUN 11:20 | PROVIDERS: PCP Family Medicine; Referring Provider Family Medicine; Visit Provider Family Medicine | DX: Z23 Encounter for immunization (principal) | CPT/HCPCS: 0001A; 0002A; 91300 ==

== ENCOUNTER → 2021-01-08 15:30 | Outpatient (CLI) | payer BC, SELFPAY ==
[2021-01-08 17:25] LABS: Absolute Lymphocyte Count 3.64 X10^3/uL (0.83-4.51); Absolute Neutrophil Count 7.3 X10^3/uL (2.0-7.7); Basophil# 0.08 X10^3/uL; Basophil% 0.7 % (0-1); Eosinophil# 0.09 X10^3/uL; Eosinophils% 0.7 % (0-5); Hematocrit 43.7 % (37-47); Hemoglobin 13.7 g/dL (12.0-15.0); Lymphocyte # 3.64 X10^3/ul (0.83-4.51); Lymphocyte % 30.2 % (19-41); Mean Corp Hgb Conc 31.4 g/dL (32-36); Mean Corpuscular Hgb 28.6 pg (27.0-32.0); Mean Corpuscular Volume 91.2 fL (81-99); Mean Platelet Vol. 9.6 fl (6.2-12.0); Monocyte# 0.84 X10^3/uL; NRBC Flagged by Analyzer 0 % (0-5); Neutrophil # 7.34 X10^3/uL (2.7-7.7); Platelet Count 414 K/mm3 (150-450); RBC Distribution Width SD 46.1 fl (35.1-43.9); Red Blood Count 4.79 M/mm3 (4.2-5.4)
[2021-01-08 17:42] LABS: ALB/GLOB Ratio 0.8 RATIO (0.9-2.4); AST(SGOT) 23 U/L (15-37); Alanine Aminotransfer ALT/SGPT 23 U/L (13-56); Albumin, Serum 3.7 g/dL (3.2-5.0); Alkaline Phosphatase 86 U/L (45-117); Anion Gap 6 (5-15); BUN 9 mg/dL (7-18); BUN/Creat Ratio 11.9 RATIO (10-20); Calcium,Total 9.4 mg/dL (8.5-10.1); Chloride 104 mmol/L (98-107); Creatinine, Serum 0.75 mg/dL (0.55-1.02); EST Glomerular Filtration Rate 87 mL/min (>60); Est Glom Filt Rate - Afr Amer 105 mL/min (>60); Globulin 4.4 g/dL (2.2-4.2); Glucose 90 mg/dL (74-106); Potassium 4.2 mmol/L (3.5-5.1); Protein, Total 8.1 g/dL (6.4-8.2); Sodium Level 139 mmol/L (136-145)
== END ==
PROVIDERS: PCP Family Medicine; Referring Provider Internal Medicine Rheumatology; Visit Provider Internal Medicine Rheumatology
DX: M05.79 Rheumatoid arthritis with rheumatoid factor of multiple sites without organ or systems involvement (principal); M21.41 Flat foot [pes planus] (acquired), right foot; Z79.899 Other long term (current) drug therapy
CPT/HCPCS: 36415; 80053; 85025

== ENCOUNTER → 2021-03-11 12:00 | Outpatient (CLI) | payer BC, SELFPAY ==
[2021-03-11 15:24] LABS: Absolute Lymphocyte Count 2.29 X10^3/uL (0.83-4.51); Absolute Neutrophil Count 8.7 X10^3/uL (2.0-7.7); Basophil# 0.05 X10^3/uL; Basophil% 0.4 % (0-1); Eosinophil# 0.02 X10^3/uL; Eosinophils% 0.2 % (0-5); Hematocrit 42.8 % (37-47); Hemoglobin 13.3 g/dL (12.0-15.0); Lymphocyte # 2.29 X10^3/ul (0.83-4.51); Lymphocyte % 19.8 % (19-41); Mean Corp Hgb Conc 31.1 g/dL (32-36); Mean Corpuscular Hgb 28.7 pg (27.0-32.0); Mean Corpuscular Volume 92.4 fL (81-99); Mean Platelet Vol. 10.2 fl (6.2-12.0); Monocyte# 0.49 X10^3/uL; Monocyte% 4.2 % (0-10); NRBC Flagged by Analyzer 0 % (0-5); Neutrophil # 8.68 X10^3/uL (2.7-7.7); Platelet Count 395 K/mm3 (150-450); RBC Distribution Width CV 14.2 % (11.6-14.6); RBC Distribution Width SD 47.8 fl (35.1-43.9); Red Blood Count 4.63 M/mm3 (4.2-5.4); White Blood Count 11.6 K/mm3 (4.4-11.0)
[2021-03-11 16:02] LABS: ALB/GLOB Ratio 0.9 RATIO (0.9-2.4); AST(SGOT) 20 U/L (15-37); Alanine Aminotransfer ALT/SGPT 26 U/L (13-56); Albumin, Serum 3.7 g/dL (3.2-5.0); Alkaline Phosphatase 86 U/L (45-117); Anion Gap 8 (5-15); BUN 7 mg/dL (7-18); BUN/Creat Ratio 8.8 RATIO (10-20); Calcium,Total 9.1 mg/dL (8.5-10.1); Chloride 101 mmol/L (98-107); Creatinine, Serum 0.79 mg/dL (0.55-1.02); EST Glomerular Filtration Rate 82 mL/min (>60); Est Glom Filt Rate - Afr Amer 99 mL/min (>60); Globulin 4.3 g/dL (2.2-4.2); Glucose 189 mg/dL (74-106); Sodium Level 135 mmol/L (136-145)
== END ==
PROVIDERS: PCP Family Medicine; Referring Provider Internal Medicine Rheumatology; Visit Provider Internal Medicine Rheumatology
DX: M05.79 Rheumatoid arthritis with rheumatoid factor of multiple sites without organ or systems involvement (principal); Z79.899 Other long term (current) drug therapy; M21.41 Flat foot [pes planus] (acquired), right foot
CPT/HCPCS: 36415; 80053; 85025

== ENCOUNTER → 2021-03-17 08:14 | Outpatient (CLI) | payer BC, SELFPAY ==
[2021-03-17 10:11] LABS: Cholesterol 289 mg/dL (200); High Density Lipoprotein 42 mg/dL; Triglycerides 418 mg/dL
== END ==
PROVIDERS: PCP Family Medicine; Referring Provider Internal Medicine Rheumatology; Visit Provider Internal Medicine Rheumatology
DX: M05.79 Rheumatoid arthritis with rheumatoid factor of multiple sites without organ or systems involvement (principal); Z79.899 Other long term (current) drug therapy; M21.41 Flat foot [pes planus] (acquired), right foot
CPT/HCPCS: 36415; 80061

== ENCOUNTER → 2021-04-07 14:43 | Outpatient (CLI) | payer BC, SELFPAY ==
[2021-04-07 18:01] LABS: Hemoglobin A1c 6.5 % (3.8-5.6)
[2021-04-07 18:18] LABS: Thyroid Stim Hormone (TSH) 0.56 uIU/mL (0.358-3.74)
== END ==
PROVIDERS: PCP Family Medicine; Referring Provider Family Medicine; Visit Provider Family Medicine
DX: R73.01 Impaired fasting glucose (principal); R53.83 Other fatigue
CPT/HCPCS: 36415; 83036; 84443

== ENCOUNTER 2021-05-27 07:50 | Day surgery (SDC) | payer BC, SELFPAY ==
[2021-05-27 08:09] VITALS: BP 135/90; PULSE 84; RESP 18; TEMP 36.4; O2SAT 97; BMI 41.0
--- NOTE | 2021-05-27 08:55 | HP.PCM_ITS ---
History and Physical Date of Admission: 05/27/21 History of Present Illness Date of Admission: 05/27/2021 Chief Complaint: Screening colonoscopy The patient is a 50 year old F who presents for a screening colonoscopy. She is not having any pain. She is not having any bleeding per rectum. She does not have any constipation or diarrhea. She is overall in good health. She has no family history of colon cancer. Past Medical History Allergies codeine Adverse Reaction (Verified 10/18/16 21:12) Other Home Medications: Ambulatory Orders Medication Instructions Recorded Azathioprine [Imuran] 150 mg PO DAILY@0800 10/18/16 Ketoprofen 200 mg PO DAILY 10/18/16 Omeprazole [Prilosec] 20 mg PO DAILY 10/18/16 Surgical History: hysterectomy, - - Breast reduction, unilateral oophorectomy. 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 Denies: Nausea, Vomiting Genitourinary: Denies: Dysuria Musculoskeletal: Denies: Joint Tenderness Skin: Denies: Dryness Neurological: Denies: Difficulty swallowing Psychiatric: Denies: Anxiety, Depression Endocrine: Denies: Change in Body Habitus Hematologic/ Lymphatic: Denies: Adenopathy VTE Information - Inpt Only VTE Present on Admission: No VTE Mechan Device Prophylaxis: SCD's VTE Pharm Prophylaxis ordered?: No Patient Problems: Active and Suspected Problems Acute appendicitis (Acute) - Physical Exam General: Alert, Oriented x3, Cooperative, No apparent distress HEENT: Atraumatic, PERRLA, EOMI, Normocephalic Oral: Moist Mucosa Neck: Supple, No JVD Lungs: Normal air movement Cardiovascular: Regular rate, Regular Rhythm Abdomen: Soft, Non-Distended, Tender - Tender in the right lower quadrant to palpation with no guarding or rebound. Negative Rovsing sign Extremities: No clubbing Skin: No rashes, No breakdown Musculoskeletal: No Muscle Wasting Lymphatic: No Cervical, Supraclavicular, or Inguinal Adenopathy Neurological: Cranial nerves II-XII grossly intact Psych/Mental Status: Normal Affect, Appropriate Vital Signs Assessment and plan: 50-year-old undergo: Screening colonoscopy. She was explained alternatives, risk, benefits including not withstanding bleeding, infection, sepsis, perforation, need for emergent surgery and . She will have an ASA of 1.
[2021-05-27 09:32] VITALS: BP 112/72; BP 135/90; PULSE 77; RESP 16; TEMP 36.7; O2SAT 96
--- NOTE | 2021-05-27 09:33 | OP.COLON_ITS ---
Patient Name: Grace Alcocer Procedure Date: 05/27/2021 8:52 AM Date of : 1970 Age: 50 Procedure: Colonoscopy Indications: High risk colon cancer surveillance: Personal history of colonic polyps, Family history of colon cancer in a first-degree relative Providers: Haim Mcgrath, Medicines: See the Anesthesia note for documentation of the administered medications Patient Profile: This is a 50 year old female. Refer to note in patient chart for documentation of history and physical. Last Colonoscopy: 3 years ago. Complications: No immediate complications. Procedure: Pre-Anesthesia Assessment: - Prior to the procedure, a History and Physical was performed, and patient medications and allergies were reviewed. The patient is competent. The risks and benefits of the procedure and the sedation options and risks were discussed with the patient. All questions were answered and informed consent was obtained. Patient identification and proposed procedure were verified by the physician. Mental Status Examination: alert and oriented. Airway Examination: normal oropharyngeal airway and neck mobility. Respiratory Examination: clear to auscultation. CV Examination: normal. Prophylactic Antibiotics: The patient does not require prophylactic antibiotics. Prior Anticoagulants: The patient has taken no previous anticoagulant or antiplatelet agents. ASA Grade Assessment: II - A patient with mild systemic disease. After reviewing the risks and benefits, the patient was deemed in satisfactory condition to undergo the procedure. The anesthesia plan was to use moderate sedation / analgesia (conscious sedation). Immediately prior to administration of medications, the patient was re-assessed for adequacy to receive sedatives. The heart rate, respiratory rate, oxygen saturations, blood pressure, adequacy of pulmonary ventilation, and response to care were monitored throughout the procedure. The physical status of the patient was re-assessed after the procedure. After I obtained informed consent, the scope was passed under direct vision. Throughout the procedure, the patient's blood pressure, pulse, and oxygen saturations were monitored continuously. The colonoscope was introduced through the anus and advanced to the cecum, identified by the appendiceal orifice, ileocecal valve and palpation. The colonoscopy was performed without difficulty. The patient tolerated the procedure well. The quality of the bowel preparation was good. Moderate Sedation: Moderate (conscious) sedation was administered by the endoscopy nurse and supervised by the endoscopist. The patient's oxygen saturation, heart rate, blood pressure and response to care were monitored. Total physician intraservice time was 15 minutes. Scope In: 9:02:13 AM Scope Withdrawal Time 0 hours 10 minutes 12 seconds Scope Out: 9:25:18 AM Total Procedure Duration Time 0 hours 23 minutes 5 seconds Findings: The perianal and digital rectal examinations were normal. Three sessile polyps were found in the transverse colon and cecum. The polyps were 1 to 2 mm in size. These polyps were removed with a hot snare. Resection and retrieval were complete. Verification of patient identification for the specimen was done. Estimated blood loss was minimal. Multiple small and large-mouthed diverticula were found in the sigmoid colon. Hemorrhoids were found on perianal exam. Impression: - Three 1 to 2 mm polyps in the transverse colon and in the cecum, removed with a hot snare. Resected and retrieved. - Diverticulosis in the sigmoid colon. Recommendation: - Discharge patient to home. - Resume previous diet. - Continue present medications. - Await pathology results. - Repeat colonoscopy in 3 years for surveillance. - Return to GI office PRN. Procedure Code(s): --- Professional --- 60989, Colonoscopy, flexible; with removal of tumor(s), polyp(s), or other lesion(s) by snare technique G0500, Moderate sedation services provided by the same physician or other qualified health career services representative performing a gastrointestinal endoscopic service that sedation supports, requiring the presence of an independent trained observer to assist in the monitoring of the patient's level of consciousness and physiological status; initial 15 minutes of intra-service time; patient age 5 years or older (additional time may be reported with 05021, as appropriate) Diagnosis Code(s): --- Professional --- Z86.010, Personal history of colonic polyps D12.3, Benign neoplasm of transverse colon (hepatic flexure or splenic flexure) D12.0, Benign neoplasm of cecum Z80.0, Family history of malignant neoplasm of digestive organs K57.30, Diverticulosis of large intestine without perforation or abscess without bleeding CPT copyright 2017 [employer]. All rights reserved. The codes documented in this report are preliminary and upon residential glazier review may be revised to meet current compliance requirements. Haim Mcgrath DO 05/27/2021 9:32:24 AM This report has been signed electronically. Number of Addenda: 1 Note Initiated On: 05/27/2021 8:52 AM Addendum Number: 1 Addendum Date: 03/25/2022 6:12:48 AM MAC was used instead of moderate sedation for this patient. Haim Mcgrath DO 03/25/2022 6:12:57 AM This report has been signed electronically.
--- NOTE | 2021-05-27 09:33 | OP.CCLET_ITS ---
03/25/2022 Laurie Cueva [address] [place] [address] Re : Colonoscopy procedure for Grace Leodan Dear Dr. Cueva This procedure was performed on May. My impressions and recommendations are as follows: Impressions : - Three 1 to 2 mm polyps in the transverse colon and in the cecum, removed with a hot snare. Resected and retrieved. - Diverticulosis in the sigmoid colon. Recommendations : - Discharge patient to home. - Resume previous diet. - Continue present medications. - Await pathology results. - Repeat colonoscopy in 3 years for surveillance. - Return to GI office PRN. My findings are described in the full procedure note, which is enclosed. If I can be of further assistance, please feel free to contact me at . Sincerely, Haim Mcgrath, 05/27/2021 9:32:24 AM This report has been signed electronically.
[2021-05-27 09:35] VITALS: BP 116/80; BP 135/90; PULSE 76; RESP 16; O2SAT 97
[2021-05-27 09:40] VITALS: BP 133/80; BP 135/90; PULSE 78; RESP 16; O2SAT 96
[2021-05-27 09:45] VITALS: BP 108/65; BP 135/90; PULSE 74; RESP 16; TEMP 36.7; O2SAT 97
--- NOTE | 2021-05-27 10:00 | COLBX_PTH ---
PATIENT: STEPHAN ENGLE LOC: EN U#:[id number] AGE/SX: 50/F ROOM: RE05/27/[address]: Dr. Haim Mcgrath DO : 1970 BED: DIS: 05/27/2021 SPEC #: [id number] RECD: 05/27/21 10:55 STATUS: JESUS REArvind #: [id number] CARROLL: 05/27/21 10:[address]: Haim Mcgrath DEPT: SURGICAL PATHOLOGY RECD BY: Bren Antunez ENTERED: 05/27/21 12:17 SP TYPE: COLON BX OT DR: Dr. Laurie Cueva MD Tissues: A - Transverse colon B - Cecum, NOS Procedures: Surgery Specimen Level IV HEADER OPERATION: Colonoscopy ? open access (MAC) PRE-OP DIAGNOSIS: Screening colonoscopy TISSUE SUBMITTED: A ? Transverse colon polyp, B ? Cecal polyp MICROSCOPIC DIAGNOSIS A. Transverse colon polyp, biopsy: Tubular adenoma. B. Cecal polyp, biopsy: Fragments of tubular adenoma. TIM:karishma 05/28/2021 MICROSCOPIC DESCRIPTION Slides are reviewed. GROSS DESCRIPTION A - Received in fixative is one container labeled with the patient's name and designated transverse colon polyp. The specimen consists of a melo-pink polyp measuring 1 x 0.7 x 0.3 cm. The specimen is totally submitted in one cassette. B - Received in fixative is one container labeled with the patient's name and designated cecal polyp. The specimen consists of multiple irregular fragments of light melo soft tissue that in aggregate measure 0.5 x 0.5 x 0.1 cm. The specimen is totally submitted in one cassette. / TIM:karishma 05/27/21 TC:1 CPT: 83901 x2
[2021-05-27 10:20] VITALS: BP 135/90
== END 2021-05-27 10:20 | disposition home or self-care (01) ==
LOC: EN 07:56 → AC 07:57
PROVIDERS: PCP Family Medicine; Referring Provider Family Medicine; Visit Provider Internal Medicine Gastroenterology
PROC: 0DJD8ZZ Inspection of Lower Intestinal Tract, Via Natural or Artificial Opening Endoscopic (ICD-10-PCS; CPT 45378; principal; 2021-05-27 09:55)
DX: Z12.11 Encounter for screening for malignant neoplasm of colon (principal); D12.0 Benign neoplasm of cecum; D12.3 Benign neoplasm of transverse colon; K57.30 Diverticulosis of large intestine without perforation or abscess without bleeding; Z80.0 Family history of malignant neoplasm of digestive organs; Z86.010 Personal history of colon polyps; F41.9 Anxiety disorder, unspecified; F32.A Depression, unspecified; K21.9 Gastro-esophageal reflux disease without esophagitis; M06.9 Rheumatoid arthritis, unspecified; Z79.899 Other long term (current) drug therapy
CPT/HCPCS: 45385; 88305; J7120

== ENCOUNTER → 2021-07-09 11:26 | Outpatient (CLI) | payer BC, SELFPAY ==
[2021-07-09 15:20] LABS: Absolute Lymphocyte Count 3.12 X10^3/uL (0.83-4.51); Absolute Neutrophil Count 5.3 X10^3/uL (2.0-7.7); Basophil# 0.06 X10^3/uL; Basophil% 0.7 % (0-1); Eosinophil# 0.06 X10^3/uL; Eosinophils% 0.7 % (0-5); Hematocrit 42.2 % (37-47); Hemoglobin 13.5 g/dL (12.0-15.0); Lymphocyte # 3.12 X10^3/ul (0.83-4.51); Lymphocyte % 35.1 % (19-41); Mean Corpuscular Hgb 29.3 pg (27.0-32.0); Mean Corpuscular Volume 91.7 fL (81-99); Mean Platelet Vol. 10.1 fl (6.2-12.0); Monocyte# 0.35 X10^3/uL; Monocyte% 3.9 % (0-10); NRBC Flagged by Analyzer 0 % (0-5); Neutrophil # 5.29 X10^3/uL (2.7-7.7); Neutrophil % 59.4 % (47-70); Platelet Count 382 K/mm3 (150-450); RBC Distribution Width CV 13.4 % (11.6-14.6); RBC Distribution Width SD 44.8 fl (35.1-43.9); White Blood Count 8.9 K/mm3 (4.4-11.0)
[2021-07-09 15:50] LABS: ALB/GLOB Ratio 0.8 RATIO (0.9-2.4); AST(SGOT) 25 U/L (15-37); Alanine Aminotransfer ALT/SGPT 26 U/L (13-56); Albumin, Serum 3.7 g/dL (3.2-5.0); Alkaline Phosphatase 92 U/L (45-117); Anion Gap 6 (5-15); BUN 10 mg/dL (7-18); Calcium,Total 9.6 mg/dL (8.5-10.1); Chloride 104 mmol/L (98-107); Cholesterol 286 mg/dL (200); Creatinine, Serum 0.77 mg/dL (0.55-1.02); EST Glomerular Filtration Rate 85 mL/min (>60); Est Glom Filt Rate - Afr Amer 103 mL/min (>60); Globulin 4.7 g/dL (2.2-4.2); Glucose 99 mg/dL (74-106); High Density Lipoprotein 47 mg/dL; Potassium 4.6 mmol/L (3.5-5.1); Protein, Total 8.4 g/dL (6.4-8.2); Sodium Level 139 mmol/L (136-145); Triglycerides 307 mg/dL; Very Low Density Lipoprotein 61 mg/dL (5-40)
== END ==
PROVIDERS: PCP Family Medicine; Referring Provider Internal Medicine Rheumatology; Visit Provider Internal Medicine Rheumatology
DX: M05.79 Rheumatoid arthritis with rheumatoid factor of multiple sites without organ or systems involvement (principal); Z79.899 Other long term (current) drug therapy; M21.41 Flat foot [pes planus] (acquired), right foot; H04.129 Dry eye syndrome of unspecified lacrimal gland
CPT/HCPCS: 36415; 80053; 80061; 85025

== ENCOUNTER → 2021-07-13 15:24 | Outpatient (CLI) | payer BC, SELFPAY ==
--- NOTE | 2021-07-13 15:27 | RAD_ITS ---
STUDY: X-RAY - PELVIS AND LEFT HIP REASON FOR EXAM: Female, 50 years old. Pain. TECHNIQUE: 3 views of the pelvis and hip. COMPARISON: 12/05/2016. FINDINGS: There is a non-specific bowel gas pattern. Normal visualized soft tissue structures. Normal bilateral iliac wings, sacroiliac joints and visualized sacrum. Normal bilateral superior and inferior pubic rami. Normal pubic symphysis. Normal bilateral ischial tuberosities. Mild medial arthrosis of both hips. RAD/HIP, UNI W/ Pelvis 2-3 Views IMPRESSION: Medial arthrosis of both hips. No other abnormality. Electronically Signed: Sterling Ruiz MD at 11:01 EST , Service support ,
== END ==
PROVIDERS: PCP Family Medicine; Referring Provider Internal Medicine Rheumatology; Visit Provider Internal Medicine Rheumatology
DX: M05.79 Rheumatoid arthritis with rheumatoid factor of multiple sites without organ or systems involvement (principal); Z79.899 Other long term (current) drug therapy; M21.41 Flat foot [pes planus] (acquired), right foot; H04.129 Dry eye syndrome of unspecified lacrimal gland
CPT/HCPCS: 73502

== ENCOUNTER 2021-09-29 16:00 | Outpatient (CLI) | payer BC, SELFPAY ==
[2021-09-29 17:47] LABS: Absolute Lymphocyte Count 2.74 X10^3/uL (0.83-4.51); Absolute Neutrophil Count 4.9 X10^3/uL (2.0-7.7); Basophil# 0.05 X10^3/uL; Basophil% 0.6 % (0-1); Eosinophil# 0.11 X10^3/uL; Eosinophils% 1.3 % (0-5); Hemoglobin 12.9 g/dL (12.0-15.0); Lymphocyte # 2.74 X10^3/ul (0.83-4.51); Lymphocyte % 32.6 % (19-41); Mean Corp Hgb Conc 32.3 g/dL (32-36); Mean Corpuscular Hgb 29.9 pg (27.0-32.0); Mean Corpuscular Volume 92.6 fL (81-99); Mean Platelet Vol. 9.4 fl (6.2-12.0); Monocyte# 0.58 X10^3/uL; Monocyte% 6.9 % (0-10); NRBC Flagged by Analyzer 0 % (0-5); Neutrophil % 58.2 % (47-70); Platelet Count 395 K/mm3 (150-450); RBC Distribution Width CV 14.7 % (11.6-14.6); RBC Distribution Width SD 49.1 fl (35.1-43.9); Red Blood Count 4.32 M/mm3 (4.2-5.4); White Blood Count 8.4 K/mm3 (4.4-11.0)
[2021-09-29 18:26] LABS: ALB/GLOB Ratio 0.9 RATIO (0.9-2.4); AST(SGOT) 38 U/L (15-37); Alanine Aminotransfer ALT/SGPT 32 U/L (13-56); Albumin, Serum 3.9 g/dL (3.2-5.0); Alkaline Phosphatase 90 U/L (45-117); Anion Gap 7 (5-15); BUN 11 mg/dL (7-18); BUN/Creat Ratio 14.4 RATIO (10-20); Calcium,Total 9.7 mg/dL (8.5-10.1); Chloride 100 mmol/L (98-107); Creatinine, Serum 0.76 mg/dL (0.55-1.02); EST Glomerular Filtration Rate 86 mL/min (>60); Est Glom Filt Rate - Afr Amer 104 mL/min (>60); Globulin 4.3 g/dL (2.2-4.2); Glucose 105 mg/dL (74-106); Potassium 4.2 mmol/L (3.5-5.1); Protein, Total 8.2 g/dL (6.4-8.2); Sodium Level 137 mmol/L (136-145)
== END 2021-09-29 23:59 | disposition home or self-care (01) ==
LOC: MTLAB 16:02
PROVIDERS: PCP Family Medicine; Referring Provider Internal Medicine Rheumatology; Visit Provider Internal Medicine Rheumatology
DX: M05.752 Rheumatoid arthritis with rheumatoid factor of left hip without organ or systems involvement (principal); Z79.899 Other long term (current) drug therapy; M21.41 Flat foot [pes planus] (acquired), right foot; H04.129 Dry eye syndrome of unspecified lacrimal gland; E78.5 Hyperlipidemia, unspecified
CPT/HCPCS: 36415; 80053; 85025

== ENCOUNTER → 2021-12-17 | Outpatient (CLI) | payer OTHER, SELFPAY ==
[2021-12-17 10:20] LABS: Absolute Lymphocyte Count 2.32 X10^3/uL (0.83-4.51); Absolute Neutrophil Count 6.6 X10^3/uL (2.0-7.7); Basophil# 0.07 X10^3/uL; Basophil% 0.7 % (0-1); Hematocrit 41.7 % (37-47); Hemoglobin 13.3 g/dL (12.0-15.0); Lymphocyte # 2.32 X10^3/ul (0.83-4.51); Lymphocyte % 23.8 % (19-41); Mean Corp Hgb Conc 31.9 g/dL (32-36); Mean Corpuscular Hgb 30.2 pg (27.0-32.0); Mean Corpuscular Volume 94.8 fL (81-99); Mean Platelet Vol. 9.7 fl (6.2-12.0); Monocyte# 0.58 X10^3/uL; NRBC Flagged by Analyzer 0 % (0-5); Neutrophil # 6.64 X10^3/uL (2.7-7.7); Neutrophil % 68.3 % (47-70); Platelet Count 400 K/mm3 (150-450); RBC Distribution Width CV 13.5 % (11.6-14.6); RBC Distribution Width SD 46.8 fl (35.1-43.9); White Blood Count 9.7 K/mm3 (4.4-11.0)
[2021-12-17 10:37] LABS: ALB/GLOB Ratio 0.9 RATIO (0.9-2.4); AST(SGOT) 23 U/L (15-37); Alanine Aminotransfer ALT/SGPT 29 U/L (13-56); Albumin, Serum 3.7 g/dL (3.2-5.0); Alkaline Phosphatase 76 U/L (45-117); Anion Gap 6 (5-15); BUN 14 mg/dL (7-18); BUN/Creat Ratio 14.4 RATIO (10-20); Calcium,Total 9.2 mg/dL (8.5-10.1); Chloride 102 mmol/L (98-107); Creatinine, Serum 0.98 mg/dL (0.55-1.02); EST Glomerular Filtration Rate 65 mL/min (>60); Est Glom Filt Rate - Afr Amer 78 mL/min (>60); Glucose 143 mg/dL (74-106); Potassium 4.1 mmol/L (3.5-5.1); Protein, Total 7.7 g/dL (6.4-8.2); Sodium Level 136 mmol/L (136-145)
== END | disposition home or self-care (01) ==
LOC: MTLAB 07:56
PROVIDERS: PCP Family Medicine; Referring Provider Internal Medicine Rheumatology; Visit Provider Internal Medicine Rheumatology
DX: M05.752 Rheumatoid arthritis with rheumatoid factor of left hip without organ or systems involvement (principal); Z79.899 Other long term (current) drug therapy; M21.41 Flat foot [pes planus] (acquired), right foot; H04.129 Dry eye syndrome of unspecified lacrimal gland; E78.5 Hyperlipidemia, unspecified
CPT/HCPCS: 36415; 80053; 85025

== ENCOUNTER → 2022-03-15 | Outpatient (CLI) | payer OTHER, SELFPAY ==
[2022-03-15 10:30] LABS: Absolute Lymphocyte Count 2.79 X10^3/uL (0.83-4.51); Absolute Neutrophil Count 7.1 X10^3/uL (2.0-7.7); Basophil# 0.04 X10^3/uL; Basophil% 0.4 % (0-1); Eosinophil# 0.08 X10^3/uL; Eosinophils% 0.8 % (0-5); Hematocrit 38.8 % (37-47); Hemoglobin 12.3 g/dL (12.0-15.0); Lymphocyte # 2.79 X10^3/ul (0.83-4.51); Lymphocyte % 26.4 % (19-41); Mean Corp Hgb Conc 31.7 g/dL (32-36); Mean Corpuscular Hgb 30.4 pg (27.0-32.0); Mean Corpuscular Volume 95.8 fL (81-99); Mean Platelet Vol. 9.2 fl (6.2-12.0); Monocyte# 0.54 X10^3/uL; Monocyte% 5.1 % (0-10); NRBC Flagged by Analyzer 0 % (0-5); Neutrophil # 7.08 X10^3/uL (2.7-7.7); Neutrophil % 66.9 % (47-70); Platelet Count 397 K/mm3 (150-450); RBC Distribution Width SD 49.1 fl (35.1-43.9); Red Blood Count 4.05 M/mm3 (4.2-5.4); White Blood Count 10.6 K/mm3 (4.4-11.0)
[2022-03-15 11:09] LABS: ALB/GLOB Ratio 0.7 RATIO (0.9-2.4); AST(SGOT) 12 U/L (15-37); Alanine Aminotransfer ALT/SGPT 14 U/L (13-56); Albumin, Serum 3.1 g/dL (3.2-5.0); Alkaline Phosphatase 85 U/L (45-117); Anion Gap 3 (5-15); BUN 6 mg/dL (7-18); Calcium,Total 9.3 mg/dL (8.5-10.1); Chloride 104 mmol/L (98-107); Creatinine, Serum 0.75 mg/dL (0.55-1.02); EST Glomerular Filtration Rate 87 mL/min (>60); Est Glom Filt Rate - Afr Amer 106 mL/min (>60); Globulin 4.2 g/dL (2.2-4.2); Glucose 109 mg/dL (74-106); Potassium 4.2 mmol/L (3.5-5.1); Protein, Total 7.3 g/dL (6.4-8.2); Sodium Level 140 mmol/L (136-145)
== END | disposition home or self-care (01) ==
LOC: MTLAB 09:08
PROVIDERS: PCP Family Medicine; Referring Provider Internal Medicine Rheumatology; Visit Provider Internal Medicine Rheumatology
DX: M05.752 Rheumatoid arthritis with rheumatoid factor of left hip without organ or systems involvement (principal); Z79.899 Other long term (current) drug therapy; M21.41 Flat foot [pes planus] (acquired), right foot; H04.129 Dry eye syndrome of unspecified lacrimal gland; E78.5 Hyperlipidemia, unspecified
CPT/HCPCS: 36415; 80053; 85025

== ENCOUNTER → 2022-03-25 | Outpatient (CLI) | payer OTHER, SELFPAY ==
[2022-03-25 18:37] LABS: T4 Total, Thyroxin 9.2 ug/dL (4.8-13.9); Thyroid Stim Hormone (TSH) 1.03 uIU/mL (0.358-3.74)
== END | disposition home or self-care (01) ==
LOC: MFPLAB 16:44
PROVIDERS: PCP Family Medicine; Visit Provider Family Medicine
DX: E03.9 Hypothyroidism, unspecified (principal)
CPT/HCPCS: 36415; 84436; 84443

== ENCOUNTER 2022-06-09 13:24 | Outpatient (CLI) | payer OTHER, SELFPAY ==
[2022-06-09 15:02] LABS: Absolute Lymphocyte Count 1.52 X10^3/uL (0.83-4.51); Basophil# 0.08 X10^3/uL; Basophil% 0.6 % (0-1); Eosinophil# 0.08 X10^3/uL; Eosinophils% 0.6 % (0-5); Hematocrit 41.6 % (37-47); Hemoglobin 13.1 g/dL (12.0-15.0); Lymphocyte # 1.52 X10^3/ul (0.83-4.51); Lymphocyte % 11.8 % (19-41); Mean Corp Hgb Conc 31.5 g/dL (32-36); Mean Corpuscular Hgb 29.5 pg (27.0-32.0); Mean Corpuscular Volume 93.7 fL (81-99); Mean Platelet Vol. 9.4 fl (6.2-12.0); Monocyte# 1.08 X10^3/uL; Monocyte% 8.4 % (0-10); NRBC Flagged by Analyzer 0 % (0-5); Neutrophil # 10.03 X10^3/uL (2.7-7.7); Neutrophil % 78.3 % (47-70); Platelet Count 395 K/mm3 (150-450); RBC Distribution Width CV 14.4 % (11.6-14.6); RBC Distribution Width SD 49.1 fl (35.1-43.9); Red Blood Count 4.44 M/mm3 (4.2-5.4); White Blood Count 12.8 K/mm3 (4.4-11.0)
[2022-06-09 15:29] LABS: ALB/GLOB Ratio 0.8 RATIO (0.9-2.4); AST(SGOT) 16 U/L (15-37); Alanine Aminotransfer ALT/SGPT 21 U/L (13-56); Albumin, Serum 3.7 g/dL (3.2-5.0); Alkaline Phosphatase 66 U/L (45-117); Anion Gap 4 (5-15); BUN 9 mg/dL (7-18); BUN/Creat Ratio 11.1 RATIO (10-20); Calcium,Total 9.8 mg/dL (8.5-10.1); Chloride 102 mmol/L (98-107); Creatinine, Serum 0.81 mg/dL (0.55-1.02); EST Glomerular Filtration Rate 80 mL/min (>60); Est Glom Filt Rate - Afr Amer 97 mL/min (>60); Globulin 4.4 g/dL (2.2-4.2); Glucose 86 mg/dL (74-106); Protein, Total 8.1 g/dL (6.4-8.2); Sodium Level 136 mmol/L (136-145)
== END 2022-06-09 23:59 | disposition home or self-care (01) ==
LOC: MTLAB 13:26
PROVIDERS: PCP Family Medicine; Referring Provider Internal Medicine Rheumatology; Visit Provider Internal Medicine Rheumatology
DX: M05.752 Rheumatoid arthritis with rheumatoid factor of left hip without organ or systems involvement (principal); Z79.899 Other long term (current) drug therapy; M21.41 Flat foot [pes planus] (acquired), right foot; H04.129 Dry eye syndrome of unspecified lacrimal gland; E78.5 Hyperlipidemia, unspecified
CPT/HCPCS: 36415; 80053; 85025

== ENCOUNTER 2022-07-20 06:57 | Emergency (ER) | payer OTHER, SELFPAY ==
[2022-07-20 06:57] VITALS: BP 180/90; PULSE 63; RESP 18; TEMP 36.5; O2SAT 98; BMI 43.4
--- NOTE | 2022-07-20 07:21 | CT_ITS ---
EXAM: CT ABDOMEN AND PELVIS WITHOUT INTRAVENOUS CONTRAST CLINICAL INDICATION: Kidney Stone TECHNIQUE: Helically acquired images were obtained of the abdomen and pelvis without intravenous contrast. This CT exam was performed using one or more of the following dose reduction techniques: automated exposure control, adjustment of the mA and/or kV according to patient size, and/or use of iterative reconstruction technique. This report was created using [employer] report generation technology. RADIATION DOSE: CTDIvol = 18.34 mGy, DLP = 920.91 mGy-cm COMPARISON: CT abdomen and pelvis with contrast 06/26/[address] abdomen and pelvis without contrast 10/18/2016. FINDINGS: LOWER THORAX: Unremarkable. Lung bases are clear. No cardiomegaly. No significant pericardial effusion. ABDOMEN: LIVER: Unremarkable. Homogeneous. GALLBLADDER AND BILE DUCTS: Unremarkable. No calcified gallstones. No gallbladder distention or wall edema. No intra- or extrahepatic biliary ductal dilation. PANCREAS: Unremarkable. No focal cystic mass. SPLEEN: Unremarkable. Normal size without focal cystic or solid mass. ADRENALS: Unremarkable. No nodules. KIDNEYS AND URETERS: Mild right hydronephrosis secondary to 3 mm partially obstructing stone in the right distal ureter. 4 nonobstructing stones in the right kidney. The dominant stone is 4 mm while the remaining stones are 2 and 3 mm. 4 nonobstructing stones in the left kidney ranging from 2 mm to 4 mm. No left hydronephrosis. Normal renal size and position. STOMACH AND BOWEL: Few diverticula in the sigmoid colon and descending colon without diverticulitis. No stomach or bowel distention. PELVIS: APPENDIX: Postsurgical absence of the appendix. BLADDER: Unremarkable. REPRODUCTIVE: Unremarkable as visualized. No mass. ABDOMEN and PELVIS: INTRAPERITONEAL SPACE: Unremarkable. No ascites or other fluid collection. No free air. BONES/JOINTS: Unremarkable. No suspicious lytic or blastic abnormality. SOFT TISSUES: 8 mm nodular density in the right breast near the chest wall is unchanged when compared to 10/10/2016. No discrete abdominal or pelvic wall hernia. VASCULATURE: Unremarkable. Abdominal aorta is non-dilated. LYMPH NODES: Unremarkable. No enlarged lymph nodes. CT/Abdomen/Pelvis without Cont IMPRESSION: 1. Mild right hydronephrosis secondary to 3 mm partially obstructing stone in the right distal ureter. 2. 4 nonobstructing stones in the right kidney and 4 nonobstructing stones in the left kidney. 3. 8 mm nodular density in the right breast near the right chest wall is unchanged when compared to 10/10/2016. 4. Bones are significant interval changes when compared to 06/26/2017. Electronically Signed: Roberth Herring MD at 8:11 EST ,
--- NOTE | 2022-07-20 07:22 | EDS_ITS ---
HPI HPI - GI History of Present Illness Chief Complaint: Abd Pain Informant: patient Abdominal Pain/Flank Pain Onset: Hours (2-3) Context: Sudden Onset Timing: Continuous and Waxes and wanes Quality: Aching Location: Right Flank Current Severity: Severe Maximum Severity: Severe Worsened by: Nothing (Cannot get comfortable) Relieved by: Nothing (Tried Azo for unknown reasons. No help but turned her urine orange.) Nausea/Vomiting/Emesis GI Symptom: Positive for Nausea; Negative for Vomiting Associated Symptoms Associated Symptoms: Negative for Dysuria, Frequency, Hematuria or Urgency Narrative Narrative: Patient woke up suddenly with severe pain right side. She states last night before going to bed she had some mild suprapubic cramping. When she woke up with this pain, she took an Azo because I thought it was a UTI. When asked why she thought that, she states she does not know. She has had no dysuria or hematuria, or other urinary symptoms, and she has never had this pain before. She has had prior hysterectomy and appendectomy. No recent illnesses or surgeries. Nauseated but no vomiting. Pain really is not in her back, but it does wrap around her flank on the right. [facility] Medical History Alcohol use Anxiety Depression Diabetes Former smoker Gastric reflux History of stress test Rheumatoid arthritis Wears glasses Home Medications omeprazole 20 mg capsule,delayed release 20 mg PO DAILY 10/18/16 [History Last Taken 10/17/16 21:00] duloxetine 60 mg capsule,delayed release 60 mg PO DAILY 05/24/21 [History Last Taken Unknown] methotrexate sodium 2.5 mg tablet 8 mg PO MO 05/24/21 [History Last Taken Unknown] prednisone 10 mg tablet 10 mg PO PRN PRN FLARE UP 05/24/21 [History Last Taken Unknown] tofacitinib 10 mg tablet (Xeljanz) 10 mg PO DAILY 05/24/21 [History Last Taken Unknown] hydrocodone-acetaminophen 5-325mg 5mg-325mg 1 tab PO Q4H PRN PRN Pain 3 days #15 TABLETS 07/20/22 [Rx Last Taken Unknown] ondansetron 4 mg disintegrating tablet 8 mg PO Q8H PRN PRN Nausea #20 tabs 07/20/22 [Rx Last Taken Unknown] Allergy/AdvReac Type Severity Reaction Status Date / Time codeine AdvReac Other Verified 05/27/21 08:08 morphine AdvReac Other Verified 05/27/21 08:08 Surgical History History of hysteroscopy Hx of Achilles tendon repair Hx of appendectomy Hx of breast reduction, elective Hx of hysterectomy Social History Smoking Status: Former smoker ROS ROS ED Constitutional Constitutional ED: Denies chills or fever(s) Eyes Eyes: Denies change in vision or diplopia ENT ENT ED: Denies rhinorrhea or sore throat Cardiovascular Cardiovascular: Denies chest pain or palpitations Respiratory/Chest Respiratory/Chest: Denies cough or dyspnea Gastrointestinal Gastrointestinal: Reports abdominal pain and nausea; Denies diarrhea or vomiting Genitourinary Genitourinary ED: Reports flank pain; Denies dysuria or hematuria Musculoskeletal Musculoskeletal: Denies back pain or neck pain Integumentary Denies abscess or rash Neurologic Neurologic: Denies headache(s), paresthesias or weakness Psychiatric Psychiatric: Denies anxiety or suicidal thoughts EXAM Physical Exam Const Vital Signs: 07/20/22 06:57 Temperature 97.7 F L Temperature Source Oral Pulse Rate 63 Respiratory Rate 18 Blood Pressure 180/90 H Blood Pressure Mean 120 Pulse Ox 98 Oxygen Delivery Method Room Air Positive well nourished, well developed and obese General Appearance ED: well developed and NAD Nutritional Appearance: obese HEENT Reports moist mucous membranes normocephalic and atraumatic Eyes PERRL and EOMs intact bilaterally Neck full ROM and supple Resp normal respiratory effort and clear to auscultation bilaterally Cardio regular rate, regular rhythm and no murmurs GI non-tender and non-distended Auscultation: normoactive bowel sounds Palpation: soft Back/Spine no CVA tenderness General Back: other FROM Extremity normal to inspection General Extremety ED: Negative for edema, pulses abnormal or tenderness General Extremity: Negative for edema or pulses abnormal Neuro oriented x3, CN's II-XII intact bilaterally and no sensory deficits noted Sensorium / Orientation: awake and alert Motor Exam: strength 5/5 throughout Skin no rashes or lesions noted and no wounds MDM MDM MDM Narrative Medical decision making narrative: Kidney stone suspected here, other renal/ureteral etiologies are considered, including infection however the patient urine is bright orange due to taking Azo just prior to coming, so the urinalysis results cannot all be trusted, so I sent a culture. Her CT does show a right ureteral stone that is approximately 3 mm and should be able to pass on its with high likelihood. Expectant management indicated. She was treated with regards to her pain and nausea here, will send her home with prescriptions, she is well-appearing and I made a low suspicion for concomitant infection. She feels much better after medications here. Lab Data Attestation: I reviewed the patient's lab results. Labs: Laboratory Results - last 24 hr 07/20/22 07:52 Urine Color SEE COMMENT BELOW Urine Clarity Sl. Cloudy Urine pH 5.0 Ur Specific Logan 1.020 Urine Protein 30 H Urine Glucose (UA) Normal Urine Ketones Negative Urine Occult Blood 150 H Urine Nitrite Positive H Urine Bilirubin 6 H Urine Urobilinogen 8 H Ur Leukocyte Esterase Negative Urine RBC 10-25 SEEN Urine WBC 0 SEEN Ur Squamous Epith Cells 0-5 SEEN Urine Bacteria 1+ Urine Mucus 0 SEEN Radiography Diagnostic Testing: Clinical Impression(s) from Imaging Studies Abdomen/Pelvis CT 07/20/22 07:21 IMPRESSION: 1. Mild right hydronephrosis secondary to 3 mm partially obstructing stone in the right distal ureter. 2. 4 nonobstructing stones in the right kidney and 4 nonobstructing stones in the left kidney. 3. 8 mm nodular density in the right breast near the right chest wall is unchanged when compared to 10/10/2016. 4. Bones are significant interval changes when compared to 06/26/2017. Electronically Signed: Roberth Herring MD at 8:11 EST , Discharge Plan Triage Chief Complaint: Abd Pain ED Provider: Barry Amaro Dx/Rx/DC Orders Clinical Impression: Renal colic on right side, Ureterolithiasis Instructions: ED Urine Strainer, ED Kidney Stone w/ Colic Prescriptions: New hydrocodone-acetaminophen [hydrocodone-acetaminophen] 5-325 mg tablet 1 tab PO Q4H PRN PRN (Reason: Pain) 3 Days Qty: 15 0RF ondansetron [ondansetron] 4 mg tablet,disintegrating 8 mg PO Q8H PRN PRN (Reason: Nausea) Qty: 20 0RF No Action omeprazole 20 MG capsule 20 mg PO DAILY Label Comments: STOMACH prednisone 10 mg Tablet 10 mg PO PRN PRN (Reason: FLARE UP) methotrexate sodium 2.5 mg Tablet 8 mg PO MO duloxetine 60 mg Capsule,Delayed Release(Dr/Ec) 60 mg PO DAILY Xeljanz 10 mg Tablet 10 mg PO DAILY Primary Care Provider: Laurie Cueva Referrals: Laurie Cueva MD [Primary Care Provider] - Grace Rm MD [Med Staff - Active Staff] - 10-14 Days if not better Disposition Disposition: Home, Self Care
[2022-07-20] MEDS: Ondansetron 4 MG/2 ML Vial IV (07:37)
[2022-07-20] MEDS: Ketorolac 30 MG/ML Syringe IV (07:37)
[2022-07-20 07:54] LABS: Mucous, Urine 0 SEEN /hpf (<or=2+); White Blood Cells 0 SEEN /hpf (0-5)
[2022-07-20 08:03] LABS: Glucose, Dipstick Normal (Normal); Ketone-Dipstick Negative (Negative); Leukocyte Esterase-Dipstick Negative /ul (Negative); Nitrite-Dipstick Positive (Negative); Occult Blood-Urine 150 /ul (Negative); Protein-Dipstick 30 mg/dl (Negative); Urine Clarity Sl. Cloudy (Clear); Urine Urobilinogen 8 mg/dl (Normal)
[2022-07-20 08:06] LABS: Color, Urine SEE COMMENT BELOW (Yellow); Urine Bilirubin Dipstick 6 mg/dL (Negative)
[2022-07-20 08:12] LABS: Bacteria 1+ /hpf (None Seen); Red Blood Cells-Urine 10-25 SEEN /hpf (0-5); Squamous Epithelial Cells - UA 0-5 SEEN /hpf (5-10)
[2022-07-20 08:25] VITALS: BP 129/74; PULSE 62; RESP 15; O2SAT 98
== END 2022-07-20 08:27 | disposition home or self-care (01) ==
PROVIDERS: Emergency Provider Emergency Medicine; PCP Family Medicine; Visit Provider Emergency Medicine
DX: N23 Unspecified renal colic (principal); K21.9 Gastro-esophageal reflux disease without esophagitis; E66.9 Obesity, unspecified; Z87.891 Personal history of nicotine dependence; Z79.899 Other long term (current) drug therapy
CPT/HCPCS: 74176; 81001; 87086; 87088; 96374; 96375; 99284; A4216; J2405

== ENCOUNTER → 2022-08-25 | Outpatient (CLI) | payer BC, SELFPAY ==
[2022-08-25 17:48] LABS: Absolute Lymphocyte Count 2.11 X10^3/uL (0.83-4.51); Basophil# 0.06 X10^3/uL; Basophil% 0.4 % (0-1); Eosinophil# 0.09 X10^3/uL; Eosinophils% 0.7 % (0-5); Hematocrit 42.3 % (37-47); Lymphocyte # 2.11 X10^3/ul (0.83-4.51); Lymphocyte % 15.4 % (19-41); Mean Corp Hgb Conc 30.7 g/dL (32-36); Mean Corpuscular Hgb 29.1 pg (27.0-32.0); Mean Corpuscular Volume 94.6 fL (81-99); Mean Platelet Vol. 9.7 fl (6.2-12.0); Monocyte# 1.38 X10^3/uL; Monocyte% 10.1 % (0-10); NRBC Flagged by Analyzer 0 % (0-5); Neutrophil % 72.8 % (47-70); Platelet Count 387 K/mm3 (150-450); RBC Distribution Width CV 14.9 % (11.6-14.6); RBC Distribution Width SD 51.5 fl (35.1-43.9); Red Blood Count 4.47 M/mm3 (4.2-5.4); White Blood Count 13.7 K/mm3 (4.4-11.0)
[2022-08-25 18:11] LABS: ALB/GLOB Ratio 0.9 RATIO (0.9-2.4); AST(SGOT) 15 U/L (15-37); Alanine Aminotransfer ALT/SGPT 21 U/L (13-56); Albumin, Serum 3.6 g/dL (3.2-5.0); Alkaline Phosphatase 70 U/L (45-117); Anion Gap 8 (5-15); BUN 8 mg/dL (7-18); BUN/Creat Ratio 9.5 RATIO (10-20); Calcium,Total 9.8 mg/dL (8.5-10.1); Chloride 102 mmol/L (98-107); Creatinine, Serum 0.84 mg/dL (0.55-1.02); EST Glomerular Filtration Rate 76 mL/min (>60); Est Glom Filt Rate - Afr Amer 92 mL/min (>60); Globulin 4.2 g/dL (2.2-4.2); Glucose 148 mg/dL (74-106); Potassium 4.1 mmol/L (3.5-5.1); Protein, Total 7.8 g/dL (6.4-8.2); Sodium Level 139 mmol/L (136-145)
== END | disposition home or self-care (01) ==
PROVIDERS: PCP Family Medicine; Referring Provider Internal Medicine Rheumatology; Visit Provider Internal Medicine Rheumatology
DX: Z79.899 Other long term (current) drug therapy (principal); M21.41 Flat foot [pes planus] (acquired), right foot; H04.129 Dry eye syndrome of unspecified lacrimal gland; E78.5 Hyperlipidemia, unspecified
CPT/HCPCS: 36415; 80053; 85025

== ENCOUNTER → 2022-09-05 | Outpatient (CLI) | payer BC, SELFPAY | END | disposition home or self-care (01) | LOC: SL 20:09 | PROVIDERS: PCP Family Medicine; Referring Provider Family Medicine; Visit Provider Family Medicine | DX: G47.30 Sleep apnea, unspecified (principal); R53.81 Other malaise; R53.83 Other fatigue; G47.10 Hypersomnia, unspecified | CPT/HCPCS: 95810 ==

== ENCOUNTER 2022-09-09 15:30 | Outpatient (RCR) | payer BC, SELFPAY ==
--- NOTE | 2022-08-25 15:42 | HP.PTEVAL_ITS ---
Patient's Visit Information STEPHAN ENGLE is a 51 year old F referred to Physical Therapy by Dr. Laurie Cueva MD with a diagnosis of TRAPEZIUS STRAIN RIGHT. Date of Evaluation: 08/25/22 Physical Therapist: Diomedes Juárez, PT, Cert MDT, OCS - Visit Plan Frequency: 2x /Week Duration: 6 Weeks Plan: PT INTERVENTIONS POSTURAL EX'S ,RTC /POSTURAL EX'S , AND MODALTIES - Subjective This 51 y/o female presents to physical therapy right shoulder pain . This UT right shoulder pain Aug 13 just woke up with pain symptoms progressively worse . No medication and no diagnostics. Patient has RA and had methotrexate , zeljanz . Aggravating factors ,handing ,lifting [place] ,like lifting gallon of milk out of refrigerator ADLS and self hygiene. Alleviating factors rest . Patient has paresthesia/tingling fingers from elbow. Also carry groceries . Pain affects sleeping. Patient has no injury other than h/o RA. Patient goals to heave no more pain. Last year RA thought mild tear US . 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 SOCIAL: - Pain Right Shoulder Pain Intensity (Out of 10): 6 Pain Intensity Range: 10 - Objective POSTURE: rounded shoulders head forward. PALAPTION: unremarkable. NEURO: denies paresthesia/tingling ,reflexes C5-6-7 2/3. AROM: shoulder flexion WNL - flexion/abd 180 degrees ,ER > 90 degrees. MMT: RTC 4/5 except supraspinatus 4- /5 mild pain ,deltoid 4-/5 lateral mild pain. CERVICAL ROM: flexion WFL otherwise MIN loss extension/lateral /flexion/rotation - Special Tests C/S Radiculapathy - Left Upper limb tension test: Negative C/S Radiculapathy - Right Upper limb tension test: Negative C/S Radiculapathy - Left Spurlings: Negative C/S Radiculapathy - Right Spurlings: Negative C/S Radiculapathy - Left Cervical distraction: Negative C/S Radiculapathy - Left Relief test: Negative C/S Radiculapathy - Right Relief test: Negative Vertebral Artery Test: Negative Alar Ligament Test: Negative - Balance/Special Test Scores Quick DASH Score: 72.5000 - Goals Goal 1:: Patient to be I with HEP Goal Time Frame: 4-6 Weeks Goal 2:: Patient improve strength RTC without pain for functionb Goal Time Frame: 4-6 Weeks Goal 3:: Patient to demonstrate 75% improvement with decrease pain and improved function Goal Time Frame: 4-6 Weeks Goal 4:: Patient to improve quick dash by 5 points to improve function and QOL Goal Time Frame: 4-6 Weeks - Rehabilitation Potential Physical Therapy Diagnosis: This 51 y/o female present to physical therapy with tendonitis right shoulder with pain with lifting and OF and + supraspinatus and Neer thus benefit from skilled PT Rehabilitation Potential: Good - Anticipated Interventions Patient/Client Instruction: Educate patient on: Condition, Plan of Care For the Purpose of:: To decrease pain, To increase ROM, To improve muscle performance and motor function, To improve ability to perform ADL's, To increase tolerance to activity/condition/position, To improve ability of physical actions for home/community/work/leisure, To reduce risk of recurrence, To improve tolerance to ADL's Therapeutic Exercise to Include: Strength training, Postural training, Scapular Strength/Stabilization Comment: RTC For the Purpose of:: To decrease pain, To increase ROM, To improve muscle performance and motor function, To increase tolerance to activity/condition/position, To improve ability of physical actions for home/community/work/leisure Thank you for the opportunity to evaluate your patient. For Medicare and Medicare HMO plans, please review the plan of care and approve it. It will need to be FAXED BACK to us at [phone] for Medicare purposes. For Medicare only, by signing this I certify the plan of care. Please let me know if there are questions or concerns regarding this plan of care. Physician Signature: Date:
--- NOTE | 2023-02-19 18:47 | HP.PTDCNRP_ITS ---
Patient Information Patient Information: STEPHAN ENGLE was seen in my office for initial evaluation on 08/25/22. The following Plan of Care was established for this patient: POC Established Initial Frequency: 2x /Week Initial Duration: 6 Weeks Anticipated Interventions Patient/Client Instruction: Educate patient on: Condition and Plan of Care For the Purpose of:: To decrease pain, To increase ROM, To improve muscle performance and motor function, To improve ability to perform ADL's, To increase tolerance to activity/condition/position, To improve ability of physical actions for home/community/work/leisure, To reduce risk of recurrence and To improve tolerance to ADL's Therapeutic Exercise to Include: Strength training, Postural training and Scapular Strength/Stabilization For the Purpose of:: To decrease pain, To increase ROM, To improve muscle performance and motor function, To increase tolerance to activity/ condition/position and To improve ability of physical actions for home/community/work/leisure Last Seen Last Seen: This patient was last seen in our office . Pertinent comments regarding their Physical therapy will appear below: Patient seen for neck pain for HEP doing great At this point I will be discontinuing this patient from physical therapy. I would be happy to see this patient again in the future if found appropriate by the physician. Thank you! Diomedes Juráez, PT, Cert MDT, OCS Balance/Gait/Functional tests Balance/Special Test Scores Oswestry Neck Score: 0 Quick DASH Score: 72.5000
== END 2022-09-09 19:00 | disposition home or self-care (01) ==
LOC: PT 15:30
PROVIDERS: PCP Family Medicine; Referring Provider Family Medicine; Visit Provider Family Medicine
DX: S46.811D Strain of other muscles, fascia and tendons at shoulder and upper arm level, right arm, subsequent encounter (principal)
CPT/HCPCS: 97110; 97162

== ENCOUNTER → 2022-11-21 | Outpatient (CLI) | payer BC, SELFPAY ==
[2022-11-21 18:01] LABS: Absolute Lymphocyte Count 2.68 X10^3/uL (0.83-4.51); Basophil# 0.06 X10^3/uL; Basophil% 0.5 % (0-1); Eosinophil# 0.07 X10^3/uL; Eosinophils% 0.6 % (0-5); Hematocrit 42.4 % (37-47); Hemoglobin 13.2 g/dL (12.0-15.0); Lymphocyte # 2.68 X10^3/ul (0.83-4.51); Lymphocyte % 23.2 % (19-41); Mean Corp Hgb Conc 31.1 g/dL (32-36); Mean Corpuscular Hgb 30.2 pg (27.0-32.0); Mean Platelet Vol. 9.1 fl (6.2-12.0); Monocyte# 0.71 X10^3/uL; Monocyte% 6.1 % (0-10); NRBC Flagged by Analyzer 0 % (0-5); Neutrophil # 7.97 X10^3/uL (2.7-7.7); Neutrophil % 68.9 % (47-70); Platelet Count 408 K/mm3 (150-450); RBC Distribution Width CV 14.1 % (11.6-14.6); RBC Distribution Width SD 50.1 fl (35.1-43.9); Red Blood Count 4.37 M/mm3 (4.2-5.4); White Blood Count 11.6 K/mm3 (4.4-11.0)
[2022-11-21 18:09] LABS: Erythrocyte Sedimentation Rate 61 mm/hr (0-30)
[2022-11-21 18:19] LABS: ALB/GLOB Ratio 0.7 RATIO (0.9-2.4); AST(SGOT) 13 U/L (15-37); Alanine Aminotransfer ALT/SGPT 15 U/L (13-56); Albumin, Serum 3.2 g/dL (3.2-5.0); Alkaline Phosphatase 87 U/L (45-117); Anion Gap 7 (5-15); BUN 7 mg/dL (7-18); BUN/Creat Ratio 7.9 RATIO (10-20); Calcium,Total 9.3 mg/dL (8.5-10.1); Chloride 103 mmol/L (98-107); Creatinine, Serum 0.88 mg/dL (0.55-1.02); EST Glomerular Filtration Rate 72 mL/min (>60); Est Glom Filt Rate - Afr Amer 87 mL/min (>60); Globulin 4.5 g/dL (2.2-4.2); Glucose 121 mg/dL (74-106); Potassium 4.2 mmol/L (3.5-5.1); Protein, Total 7.7 g/dL (6.4-8.2); Sodium Level 138 mmol/L (136-145)
== END | disposition home or self-care (01) ==
LOC: MTLAB 16:40
PROVIDERS: PCP Family Medicine; Referring Provider Internal Medicine Rheumatology; Visit Provider Internal Medicine Rheumatology
DX: M05.79 Rheumatoid arthritis with rheumatoid factor of multiple sites without organ or systems involvement (principal); Z79.899 Other long term (current) drug therapy; M21.41 Flat foot [pes planus] (acquired), right foot; H04.129 Dry eye syndrome of unspecified lacrimal gland; E78.5 Hyperlipidemia, unspecified
CPT/HCPCS: 36415; 80053; 85025; 85652; 86140

== ENCOUNTER → 2022-12-01 | Outpatient (CLI) | payer BC, SELFPAY ==
--- NOTE | 2022-12-01 11:48 | BI_ITS ---
MAMMOGRAPHY - BILATERAL SCREENING REASON FOR EXAM: Female, 51 years old. Routine annual screening examination. PERTINENT HISTORY: Aunt with breast cancer. TECHNIQUE: Digital bilateral breast rosas (3D mammographic acquisition) in the CC and MLO projections. 2-D mediolateral oblique (MLO) and craniocaudad (CC) views of both breasts were obtained. CAD: Full Field Digital Mammography with Computer Added Detection was performed. COMPARISON: Comparison is made with prior study dated August 15, 2019 and July 06, 2018. FINDINGS: Breast Composition: The breasts are almost entirely fatty. There are no dominant masses or suspicious calcifications. Stable small benign-appearing bilateral axillary lymph nodes. No other significant abnormalities are identified. There has been no significant change since the prior study. BI/SCRN MAMM (CAD)W/ROSAS BILAT IMPRESSION: Stable bilateral screening mammogram. Yearly follow-up mammogram recommended. (A) ASSESSMENT CATEGORY: BIRADS Category 2: Benign. A letter regarding these results will be sent to the patient by the facility within 30 days. Approximately 10% of breast cancers are not detected by mammography. A normal mammogram should not delay biopsy of a clinically suspicious abnormality. [id number] Electronically Signed: Matteo Garrido MD at 14:05 EDT ,
== END | disposition home or self-care (01) ==
LOC: OPBI 11:47
PROVIDERS: PCP Family Medicine; Referring Provider Family Medicine; Visit Provider Family Medicine
DX: Z12.31 Encounter for screening mammogram for malignant neoplasm of breast (principal); Z80.3 Family history of malignant neoplasm of breast
CPT/HCPCS: 77063; 77067

== ENCOUNTER → 2023-04-20 | Outpatient (CLI) | payer BC, SELFPAY ==
[2023-04-20 10:07] LABS: Absolute Lymphocyte Count 1.51 X10^3/uL (0.83-4.51); Absolute Neutrophil Count 12.3 X10^3/uL (2.0-7.7); Basophil# 0.06 X10^3/uL; Basophil% 0.4 % (0-1); Eosinophil# 0.02 X10^3/uL; Eosinophils% 0.1 % (0-5); Hematocrit 40.1 % (37-47); Hemoglobin 12.5 g/dL (12.0-15.0); Lymphocyte # 1.51 X10^3/ul (0.83-4.51); Lymphocyte % 10.3 % (19-41); Mean Corp Hgb Conc 31.2 g/dL (32-36); Mean Corpuscular Hgb 31.2 pg (27.0-32.0); Mean Platelet Vol. 9.5 fl (6.2-12.0); Monocyte# 0.79 X10^3/uL; Monocyte% 5.4 % (0-10); NRBC Flagged by Analyzer 0 % (0-5); Neutrophil # 12.26 X10^3/uL (2.7-7.7); Neutrophil % 83.4 % (47-70); Platelet Count 354 K/mm3 (150-450); RBC Distribution Width CV 14.6 % (11.6-14.6); Red Blood Count 4.01 M/mm3 (4.2-5.4); White Blood Count 14.7 K/mm3 (4.4-11.0)
[2023-04-20 10:58] LABS: ALB/GLOB Ratio 0.7 RATIO (0.9-2.4); AST(SGOT) 35 U/L (15-37); Alanine Aminotransfer ALT/SGPT 30 U/L (13-56); Albumin, Serum 3.2 g/dL (3.2-5.0); Alkaline Phosphatase 87 U/L (45-117); Anion Gap 6 (5-15); BUN 4 mg/dL (7-18); Calcium,Total 9.1 mg/dL (8.5-10.1); Chloride 107 mmol/L (98-107); Creatinine, Serum 0.67 mg/dL (0.55-1.02); EST Glomerular Filtration Rate 99 mL/min (>60); Est Glom Filt Rate - Afr Amer 119 mL/min (>60); Globulin 4.3 g/dL (2.2-4.2); Glucose 149 mg/dL (74-106); Potassium 4.3 mmol/L (3.5-5.1); Protein, Total 7.5 g/dL (6.4-8.2); Sodium Level 140 mmol/L (136-145)
== END | disposition home or self-care (01) ==
PROVIDERS: PCP Family Medicine; Referring Provider Internal Medicine Rheumatology; Visit Provider Internal Medicine Rheumatology
DX: M05.70 Rheumatoid arthritis with rheumatoid factor of unspecified site without organ or systems involvement (principal); Z79.899 Other long term (current) drug therapy
CPT/HCPCS: 36415; 80053; 85025

== ENCOUNTER → 2023-06-01 | Outpatient (CLI) | payer BC, SELFPAY ==
[2023-06-01 18:18] LABS: Amphetamine Urine VISTA NEGATIVE (<1000 ng/mL); Barbiturate Urine VISTA NEGATIVE (< 200 ng/mL); Benzodiazepine Urine VISTA NEGATIVE (< 200 ng/mL); Cocaine Urine VISTA NEGATIVE (< 300 ng/mL); Ecstacy Urine VISTA NEGATIVE (< 500 ng/mL); Methadone Urine VISTA NEGATIVE (< 300 ng/mL); PCP Urine VISTA NEGATIVE (< 25 ng/mL); THC Urine VISTA NEGATIVE (< 50 ng/mL); Vista UDS pH Range 7
== END | disposition home or self-care (01) ==
LOC: MTLAB 14:43
PROVIDERS: PCP Family Medicine; Referring Provider Internal Medicine Pulmonary Disease; Visit Provider Internal Medicine Pulmonary Disease
DX: G47.10 Hypersomnia, unspecified (principal); G47.33 Obstructive sleep apnea (adult) (pediatric)
CPT/HCPCS: 36415; 80307

== ENCOUNTER → 2023-06-20 | Outpatient (CLI) | payer BC, SELFPAY ==
[2023-06-20 15:15] LABS: Absolute Lymphocyte Count 2.91 X10^3/uL (0.83-4.51); Absolute Neutrophil Count 6.1 X10^3/uL (2.0-7.7); Basophil# 0.06 X10^3/uL; Basophil% 0.6 % (0-1); Eosinophil# 0.06 X10^3/uL; Eosinophils% 0.6 % (0-5); Hematocrit 43.1 % (37-47); Hemoglobin 13.8 g/dL (12.0-15.0); Lymphocyte # 2.91 X10^3/ul (0.83-4.51); Lymphocyte % 30.2 % (19-41); Mean Corpuscular Hgb 31.2 pg (27.0-32.0); Mean Corpuscular Volume 97.3 fL (81-99); Mean Platelet Vol. 9.6 fl (6.2-12.0); Monocyte# 0.52 X10^3/uL; Monocyte% 5.4 % (0-10); NRBC Flagged by Analyzer 0 % (0-5); Neutrophil # 6.06 X10^3/uL (2.7-7.7); Neutrophil % 62.9 % (47-70); Platelet Count 445 K/mm3 (150-450); RBC Distribution Width CV 13.9 % (11.6-14.6); RBC Distribution Width SD 49.7 fl (35.1-43.9); Red Blood Count 4.43 M/mm3 (4.2-5.4); White Blood Count 9.6 K/mm3 (4.4-11.0)
[2023-06-20 16:13] LABS: ALB/GLOB Ratio 0.8 RATIO (0.9-2.4); AST(SGOT) 63 U/L (15-37); Alanine Aminotransfer ALT/SGPT 31 U/L (13-56); Albumin, Serum 3.7 g/dL (3.2-5.0); Alkaline Phosphatase 77 U/L (45-117); Anion Gap 8 (5-15); BUN 7 mg/dL (7-18); Chloride 102 mmol/L (98-107); Creatinine, Serum 0.78 mg/dL (0.55-1.02); EST Glomerular Filtration Rate 83 mL/min (>60); Est Glom Filt Rate - Afr Amer 100 mL/min (>60); Ferritin 101 ng/mL (8-252); Globulin 4.4 g/dL (2.2-4.2); Glucose 103 mg/dL (74-106); Potassium 4.1 mmol/L (3.5-5.1); Protein, Total 8.1 g/dL (6.4-8.2); Sodium Level 139 mmol/L (136-145)
== END | disposition home or self-care (01) ==
LOC: MTLAB 13:11
PROVIDERS: PCP Family Medicine; Referring Provider Internal Medicine Rheumatology; Visit Provider Internal Medicine Rheumatology
DX: M05.70 Rheumatoid arthritis with rheumatoid factor of unspecified site without organ or systems involvement (principal); Z79.899 Other long term (current) drug therapy; D50.8 Other iron deficiency anemias
CPT/HCPCS: 36415; 80053; 82728; 85025

== ENCOUNTER → 2023-06-30 | Outpatient (CLI) | payer BC, SELFPAY ==
--- NOTE | 2023-06-30 10:19 | US_ITS ---
INDICATION: ELEVATED ENZYMES EXAMINATION: Ultrasound US Abdomen RUQ (limited) TECHNIQUE: Carr-scale and color Doppler imaging was performed of the abdomen. COMPARISON: FINDINGS: LIVER: There is fatty echotexture measuring 18.7 cm. No focal hepatic lesion. No intrahepatic biliary ductal dilatation. There is no free fluid. GALLBLADDER AND BILIARY TREE: No shadowing gallstone, pericholecystic fluid or gallbladder wall thickening is demonstrated. The proximal common bile duct measures 4.3 mm, which is within normal limits for the patient''s age. SONOGRAPHIC CASTANEDA''S SIGN: Negative. PANCREAS: No focal abnormality is demonstrated in the pancreas. Limited visualization of the pancreatic tail. No pancreatic ductal dilatation. RIGHT KIDNEY: 11.9 x 4.4 x 4.9 cm. The cortex is 15 mm. There is no hydronephrosis. There are calculi up to 6 mm. VESSELS: Submitted longitudinal images of the intra-abdominal aorta demonstrate no gross abnormalities and are unremarkable. The IVC is patent. US/Liver IMPRESSION: Fatty liver. Nonobstructive right renal calculi. Electronically Signed: Freddy Leach DO at 19:11 EST Reading Location ID and State: [facility] / [place] Tel [phone], Service support ,
== END | disposition home or self-care (01) ==
PROVIDERS: PCP Family Medicine; Referring Provider Internal Medicine Rheumatology; Visit Provider Internal Medicine Rheumatology
DX: M05.70 Rheumatoid arthritis with rheumatoid factor of unspecified site without organ or systems involvement (principal); Z79.899 Other long term (current) drug therapy
CPT/HCPCS: 76705

== ENCOUNTER → 2023-07-25 | Outpatient (CLI) | payer BC, SELFPAY ==
[2023-07-25 17:53] LABS: ALB/GLOB Ratio 0.8 RATIO (0.9-2.4); AST(SGOT) 40 U/L (15-37); Alanine Aminotransfer ALT/SGPT 26 U/L (13-56); Albumin, Serum 3.4 g/dL (3.2-5.0); Alkaline Phosphatase 69 U/L (45-117); Anion Gap 6 (5-15); BUN 10 mg/dL (7-18); BUN/Creat Ratio 13.8 RATIO (10-20); Chloride 104 mmol/L (98-107); Creatinine, Serum 0.73 mg/dL (0.55-1.02); EST Glomerular Filtration Rate 90 mL/min (>60); Est Glom Filt Rate - Afr Amer 109 mL/min (>60); Globulin 4.2 g/dL (2.2-4.2); Glucose 158 mg/dL (74-106); Potassium 4.1 mmol/L (3.5-5.1); Protein, Total 7.6 g/dL (6.4-8.2); Sodium Level 140 mmol/L (136-145)
--- OUTSIDE RECORDS SUMMARY | 2023-07-25 17:57 | XMS RPT_ITS | CCD ---
Author Name Unknown Address [address] [place] [address] Organization [facility] Care Team Providers Care Engrosser Name Role Phone Curtis Barajas MD [phone] Laurie Cueva Primary Care Provider Allergies Allergy Classification Reported Allergen(s) Allergy Type Date of Onset Reaction(s) Facility (2 sources) codeine drug allergy 7 [facility] Work Phone: (2 sources) morphine; Translations: [MORPHINE SULFATE] drug allergy 7 [facility] Work Phone: (2 sources) Codeine Drug Allergy 0 Itching [facility] Work Phone: (2 sources) Morphine Drug Allergy 0 Other (See Comments) [facility] Work Phone: Medications Current Medications Medication Drug Class(es) Dates Sig (Normalized) Sig (Original) acetaminophen 500 mg oral tablet (3 sources) Start: 09-05-2019 acetaminophen (TYLENOL) tablet 1,000 mg Completed/Discontinued Medications Medication Drug Class(es) Dates Sig (Normalized) Sig (Original) famotidine 20 mg oral tablet (1 source) Histamine-2 Receptor Antagonist Start: 09-05-2019 End: 09-05-2019 famotidine (PEPCID) tablet 20 mg Problems Active Problems Problem Classification Problem Date Documented Date Episodic/Chronic Esophageal disorders (2 sources) Gastroesophageal reflux disease; Translations: [Gastro-esophageal reflux disease without esophagitis] Onset: 03-10-2017 03-10-2017 Chronic Other nutritional; endocrine; and metabolic disorders (4 sources) Overweight; Translations: [Body mass index (BMI) 38.0-38.9, adult] Onset: 11-03-2016 11-03-2016 Chronic Residual codes; unclassified (1 source) History of right oophorectomy Episodic Past or Other Problems Problem Classification Problem Date Documented Da te Episodic/Chronic Appendicitis and other appendiceal conditions (2 sources) Acute appendicitis; Translations: [Unspecified acute appendicitis] Onset: 11-03-2016 11-03-2016 Episodic Nonmalignant breast conditions (2 sources) Mammography abnormal; Translations: [Other abnormal and inconclusive findings on diagnostic imaging of breast] Onset: 03-10-2017 03-10-2017 Episodic Results Test Name Value Interpretation Reference Range Facil ity Vital Signs Date Time Vital Sign Value Performing Clinician Facility 09-05-2019 13:55-0500 Body Temperature 98.01 [degF] [facility] Work Phone: 09-05-2019 13:55-0500 BP Diastolic 79 mm[Hg] [facility] Work Phone: 09-05-2019 13:55-0500 BP Systolic 129 mm[Hg] [facility] Work Phone: 09-05-2019 13:55-0500 Pulse (Heart Rate) 81 /min [facility] Work Phone: 09-05-2019 13:55-0500 Pulse Oximetry 95 % [facility] Work Phone: 09-05-2019 13:55-0500 Respiratory Rate 18 /min [facility] Work Phone: 09-05-2019 09:15-0500 BMI (Body Mass Index) 43.27 kg/m2 [facility] Work Phone: 09-05-2019 09:15-0500 Body weight 103.87 kg [facility] Work Phone: 09-05-2019 09:15-0500 Height 154.9 cm [facility] Work Phone: 08-29-2019 13:53-0500 BMI (Body Mass Index) 43.27 kg/m2 [facility] Work Phone: 08-29-2019 13:53-0500 Body Temperature 98.29 [degF] [facility] Work Phone: 08-29-2019 13:53-0500 Body weight 103.87 kg Jose En[facility] Work Phone: 08-29-2019 13:53-0500 BP Diastolic 83 mm[Hg] [facility] Work Phone: 08-29-2019 13:53-0500 BP Systolic 132 mm[Hg] [facility] Work Phone: 08-29-2019 13:53-0500 Height 154.9 cm Jose En[facility] Work Phone: 08-29-2019 13:53-0500 Pulse (Heart Rate) 83 /min [facility] Work Phone: 08-29-2019 13:53-0500 Pulse Oximetry 95 % [facility] En[facility] Work Phone: 08-29-2019 13:53-0500 Respiratory Rate 16 /min Jose En[facility] Work Phone: 03-10-2017 15:09-0400 BMI (Body Mass Index) 37.55 kg/m2 Curtis Barajas MD [facility] [employer] Work Phone: 03-10-2017 15:09-0400 Height 156.21 cm Curtis Barajas MD [facility] [employer] Work Phone: 03-10-2017 15:09-0400 Pulse (Heart Rate) 80 /min Curtis Barajas MD [facility] [employer] Work Phone: 03-10-2017 15:09-0400 Respiratory Rate 16 /min Curtis Barajas MD [facility] [employer] Work Phone: 03-10-2017 15:09-0400 Weight 91.63 kg Curtis Barajas MD [facility] [employer] Work Phone: 11-03-2016 10:49-0400 Body Temperature 98.2 [degF] Curtis Barajas MD [facility] [employer] Work Phone: 11-03-2016 10:49-0400 BP Diastolic 78 mm[Hg] Curtis Barajas MD [facility] [employer] Work Phone: 11-03-2016 10:49-0400 BP Systolic 113 mm[Hg] Curtis Barajas MD [facility] [employer] Work Phone: 11-03-2016 10:49-0400 Height 156.21 cm Curtis Barajas MD [facility] [employer] Work Phone: 11-03-2016 10:49-0400 Weight 94.71 kg Curtis Barajas MD [facility] [employer] Work Phone: Encounters Encounter Date Encounter Type Care Provider Facility Start: 09-05-2019 End: 09-05-2019 Subsequent hospital visit by physician Jose Enrique Mack Work Phone: [facility] General Surgery Procedures Date Procedure Procedure Detail Performing Clinician Start: 09-05-2019 OPERATIVE REPORT 3m Sca nning Start: 09-05-2019 Ecg routine ecg w/le ast 12 lds w/i&r Sterling Jarrett Work Phone: Plan of Treatment Date Care Activity Detail Author Start: 2022 Shingles Vaccine (1 of 2) Shingles Vaccine (1 of 2) [facility] Work Phone: Start: 09-23-2019 End: 09-23-2019 Office Visit 09/23/2019 Office Visit Gynecologic Oncology Anabela Rebolledo PA [address] [facility] [facility] [address] [place] [address] [facility] [place] [facility] Start: 09-05-2019 End: 09-05-2019 Appointment 09/05/2019 Appointment General Surgery Jose Enrique Mack MD [address] [facility] [address] [place] [address] [facility] General Surgery Start: 03-24-2019 Influenza vaccination Flu vaccine (# 1) [facility] Work Phone: Start: 03-10-2017 End: 03-10-2017 Appointment Appointment [facility] [employer] Work Phone: Start: 11-03-2016 End: 11-03-2016 Follow-up visit Follow Up as needed [facility] Work Phone: Start: 2012 Diabetes screen Diabetes screen [employer] Work Phone: Start: 2012 Lipid screen Lipid screen [facility] Work Phone: Start: 1993 Cervical cancer screen Cervical canc er screen [facility] Work Phone: Start: 12-28-1987 HIV screen HIV screen [employer] Work Phone: Start: 12-28-1983 DTaP/Tdap/Td vaccine (1 - Tdap) DTaP/Tdap/Td vaccine (1 - Tdap) [facility] Work Phone: End: 09-05-2019 Blood glucose - POCT Blood glucose - POCT Point of Care Testing STAT One Time for 1 Occurrences starting 09/05/2019 until 09/05/2019 [employer] Work Phone: Payers Date Payer Category Payer Unknown BCBS [place] - [place] P PO xxxxxxxxxxxxxxx 2019-Present [address] [place] [address] xxxxxxxxxxxxxxx [id number] Social History Date Type Detail Facility Start: 08-29-2019 End: 09-05-2019 Tobacco smoking status NHIS Former smoker [employer] Work Phone: End: 07-24-2004 History of tobacco use Current smoker [employer] Work Phone: End: 07-24-2004 History of tobacco use Cigarette Smoker [employer] Work Phone: Start: 08-29-2019 End: 09-05-2019 Cigarettes smoked current (pack per day) - Reported [facility] Work Phone: Start: 08-29-2019 End: 09-05-2019 Alcohol intake Ex-drinker (finding) [facility] Work Phone: Start: 08-29-2019 Alcohol Comment Rare [employer] Work Phone: Sex Assigned At Not on file [facility] Work Phone: Discharge Instructions * Instructions* Maryann Beebe RN - 08/29/2019 Please bring your [facility] Information folder on the day of surgery. Please cyndi the last dose taken (date and time ) on your Daily Medications List provided in your After Visit Summary. Please bring a photo ID and insurance information TAKE the following medications the morning of your surgery: Fluoxetine, Omeprazole You may take your prescription pain medications. You may take Tylenol (Acetaminophen) if needed forpain. No Motrin, Ibuprofen, or Advil 24 hours prior to surgery, or longer if instructed by your surgeon. No Aleve or Naprosyn 3 days prior to surgery, or longer if instructed by your surgeon. If you are on BLOOD THINNERS or ASPIRIN No aspirin for five days prior to surgery Additional instructions: none You will receive a reminder call the day before surgery with your Same Day Surgery arrival time. If you have specific questions, please call your surgeon. documented in this encounter* Instructions* Sophia Burt MD - 09/05/2019 Please follow your post operative care instructions given to you by your [facility] Operator Oncologist's office at your pre operative visit. Please call the office with questions or concerns and be sure to follow up at your scheduled post operative visit. documented in this encounter Advance Directives No Advanced Directives Records FoundDocuments on File Type Date Recorded Patient Dental Secretary Expl anation Advance Directives and Living Will Power of Inventory Control Supervisor Latest Code Status on File Code Status Date Activated Date Inactivated Comments Full Code 09/05/2019 9:15 AM History of Present Illness * Bonnie Peng RN - 09/05/2019 2:50 PM EST Discharge information given to the patient. Patient and family verbalized understanding of information. All questions were answered before discharge. Patient ambulated, denies dizziness or nausea. Tolerating PO fluids and crackers. Vital signs are stable. Patient has changed and is being discharged home in a wheelchair with valuables. * Amie Cornell RN - 09/05/2019 2:02 PM EST Uses spirometer well. at bedside * Colleen Ross RN - 09/05/2019 11:26 AM EST Patient arrived and ID verified. Vital signs stable. Call light in reach. documented in this encounter Assessments Diagnosis S/P right oophorectomy- Primary Acquired absence of organ, genital organs Summary Purpose Family History No Family History Records Found Additional Source Comments INFORMATION SOURCE (unrecogn ized section and content) FOR RECORDS PERTAINING TO PATIENTS WHO ARE OR HAVE BEEN ENROLLED IN A CHEMICAL DEPENDENCY/SUBSTANCEABUSE PROGRAM, SOME INFORMATION MAY BE OMITTED. This clinical summary was aggregated from multiple sources. Caution should be exercised in using it in the provision of clinical care. This summary normalizes information from multiple sources, and as a consequence, information in this document may materially change the coding, format and clinical context of patient data. In addition, data may be omitted in some cases. CLINICAL DECISIONS SHOULD BE BASED ON THE PRIMARY CLINICAL RECORDS. [employer] provides no warranty or guarantee of the accuracy or completeness of information in this document.
== END | disposition home or self-care (01) ==
PROVIDERS: PCP Family Medicine; Referring Provider Internal Medicine Rheumatology; Visit Provider Internal Medicine Rheumatology
DX: M05.70 Rheumatoid arthritis with rheumatoid factor of unspecified site without organ or systems involvement (principal); Z79.899 Other long term (current) drug therapy
CPT/HCPCS: 36415; 80053

== ENCOUNTER → 2023-09-15 | Outpatient (CLI) | payer BC, SELFPAY ==
[2023-09-15 17:54] LABS: Absolute Lymphocyte Count 2.62 X10^3/uL (0.83-4.51); Absolute Neutrophil Count 6.1 X10^3/uL (2.0-7.7); Basophil# 0.04 X10^3/uL; Basophil% 0.4 % (0-1); Eosinophil# 0.12 X10^3/uL; Eosinophils% 1.3 % (0-5); Hematocrit 40.5 % (37-47); Hemoglobin 12.9 g/dL (12.0-15.0); Lymphocyte # 2.62 X10^3/ul (0.83-4.51); Lymphocyte % 27.4 % (19-41); Mean Corp Hgb Conc 31.9 g/dL (32-36); Mean Corpuscular Hgb 30.3 pg (27.0-32.0); Mean Corpuscular Volume 95.1 fL (81-99); Mean Platelet Vol. 9.9 fl (6.2-12.0); Monocyte# 0.69 X10^3/uL; Monocyte% 7.2 % (0-10); NRBC Flagged by Analyzer 0 % (0-5); Neutrophil # 6.05 X10^3/uL (2.7-7.7); Neutrophil % 63.4 % (47-70); Platelet Count 356 K/mm3 (150-450); RBC Distribution Width CV 12.4 % (11.6-14.6); RBC Distribution Width SD 43.2 fl (35.1-43.9); Red Blood Count 4.26 M/mm3 (4.2-5.4); White Blood Count 9.6 K/mm3 (4.4-11.0)
[2023-09-15 18:03] LABS: ALB/GLOB Ratio 0.9 RATIO (0.9-2.4); AST(SGOT) 28 U/L (15-37); Alanine Aminotransfer ALT/SGPT 24 U/L (13-56); Albumin, Serum 3.7 g/dL (3.2-5.0); Alkaline Phosphatase 82 U/L (45-117); Anion Gap 2 (5-15); BUN 13 mg/dL (7-18); BUN/Creat Ratio 16.6 RATIO (10-20); Calcium,Total 9.8 mg/dL (8.5-10.1); Chloride 105 mmol/L (98-107); Creatinine, Serum 0.78 mg/dL (0.55-1.02); EST Glomerular Filtration Rate 83 mL/min (>60); Est Glom Filt Rate - Afr Amer 100 mL/min (>60); Glucose 125 mg/dL (74-106); Potassium 4.4 mmol/L (3.5-5.1); Protein, Total 7.7 g/dL (6.4-8.2); Sodium Level 137 mmol/L (136-145)
== END | disposition home or self-care (01) ==
LOC: MTLAB 16:33
PROVIDERS: PCP Family Medicine; Referring Provider Internal Medicine Rheumatology; Visit Provider Internal Medicine Rheumatology
DX: M05.70 Rheumatoid arthritis with rheumatoid factor of unspecified site without organ or systems involvement (principal); Z79.899 Other long term (current) drug therapy
CPT/HCPCS: 36415; 80053; 85025

== ENCOUNTER → 2023-11-24 | Outpatient (CLI) | payer BC, SELFPAY ==
[2023-11-24 17:30] LABS: Absolute Lymphocyte Count 2.17 X10^3/uL (0.83-4.51); Absolute Neutrophil Count 7.8 X10^3/uL (2.0-7.7); Basophil# 0.05 X10^3/uL; Basophil% 0.5 % (0-1); Eosinophil# 0.05 X10^3/uL; Eosinophils% 0.5 % (0-5); Hematocrit 40.9 % (37-47); Hemoglobin 13.1 g/dL (12.0-15.0); Lymphocyte # 2.17 X10^3/ul (0.83-4.51); Lymphocyte % 20.2 % (19-41); Mean Corpuscular Hgb 30.3 pg (27.0-32.0); Mean Corpuscular Volume 94.5 fL (81-99); Mean Platelet Vol. 9.1 fl (6.2-12.0); Monocyte# 0.66 X10^3/uL; Monocyte% 6.1 % (0-10); NRBC Flagged by Analyzer 0 % (0-5); Neutrophil # 7.77 X10^3/uL (2.7-7.7); Neutrophil % 72.2 % (47-70); Platelet Count 440 K/mm3 (150-450); RBC Distribution Width CV 13.4 % (11.6-14.6); RBC Distribution Width SD 45.9 fl (35.1-43.9); Red Blood Count 4.33 M/mm3 (4.2-5.4); White Blood Count 10.8 K/mm3 (4.4-11.0)
[2023-11-24 18:09] LABS: ALB/GLOB Ratio 0.8 RATIO (0.9-2.4); AST(SGOT) 14 U/L (15-37); Alanine Aminotransfer ALT/SGPT 16 U/L (13-56); Albumin, Serum 3.4 g/dL (3.2-5.0); Alkaline Phosphatase 78 U/L (45-117); Anion Gap 4 (5-15); BUN 10 mg/dL (7-18); BUN/Creat Ratio 12.5 RATIO (10-20); Calcium,Total 9.5 mg/dL (8.5-10.1); Chloride 105 mmol/L (98-107); EST Glomerular Filtration Rate 80 mL/min (>60); Est Glom Filt Rate - Afr Amer 97 mL/min (>60); Globulin 4.5 g/dL (2.2-4.2); Glucose 144 mg/dL (74-106); Potassium 3.8 mmol/L (3.5-5.1); Protein, Total 7.9 g/dL (6.4-8.2); Sodium Level 139 mmol/L (136-145)
== END | disposition home or self-care (01) ==
LOC: MTLAB 16:50
PROVIDERS: PCP Family Medicine; Referring Provider Internal Medicine Rheumatology; Visit Provider Internal Medicine Rheumatology
DX: M05.70 Rheumatoid arthritis with rheumatoid factor of unspecified site without organ or systems involvement (principal); Z79.899 Other long term (current) drug therapy
CPT/HCPCS: 36415; 80053; 85025

== ENCOUNTER → 2023-12-20 | Outpatient (CLI) | payer BC, SELFPAY ==
[2023-12-20 18:18] LABS: Cholesterol 271 mg/dL (200); High Density Lipoprotein 54 mg/dL; Triglycerides 215 mg/dL; Very Low Density Lipoprotein 43 mg/dL (5-40)
== END | disposition home or self-care (01) ==
PROVIDERS: PCP Family Medicine; Referring Provider Family Medicine; Visit Provider Family Medicine
DX: Z00.00 Encounter for general adult medical examination without abnormal findings (principal)
CPT/HCPCS: 36415; 80061

== ENCOUNTER → 2024-02-02 | Outpatient (CLI) | payer BC, SELFPAY ==
--- NOTE | 2024-02-02 15:53 | CT_ITS ---
STUDY: CT ABDOMEN AND PELVIS WITHOUT CONTRAST REASON FOR EXAM: Female, 53 years old. STAT, flank pain, hematuria, history of renal stone RADIATION DOSAGE (If Supplied By Facility): CTDIvol = ( 20.72 ) mGy, DLP = ( 1014.60 ) mGycm TECHNIQUE: Transaxial images were obtained from the dome of the diaphragm to the symphysis pubis without oral contrast, and without intravenous contrast. Sagittal and coronal images were reconstructed. Individualized dose optimization techniques were used for this CT. COMPARISON: July 20, 2022 FINDINGS: The visualized lung bases are unremarkable. The visualized portions of the heart are within normal limits. Normal liver. Normal gallbladder and extrahepatic biliary system. Normal spleen. Normal pancreas. Normal bilateral adrenal glands. There are 6 nonobstructing right renal calculi without evidence for obstruction or mass. There are 4 tiny nonobstructing left renal calculi. There is a nonobstructing stone seen within the proximal ureter measuring approximately 4 mm in size. There is no renal mass given the limitation of nonenhanced exam. Normal visualized stomach. Normal small intestine. Mild diverticular disease of the colon without evidence for acute diverticulitis. The appendix is visualized and appears normal. Minor atherosclerotic changes of the aorta without evidence for aneurysm Normal inferior vena cava. Normal retroperitoneum. Incompletely distended thick walled bladder likely of no significance. Uterus not visualized status post hysterectomy Normal abdominal wall. Normal osseous structures. CT/Abdomen/Pelvis without Cont IMPRESSION: Bilateral nephrolithiasis. Nonobstructing proximal left ureteral calculus measuring approximately 4 mm in size Electronically Signed: Stone Mc MD at 16:16 EDT ,
== END | disposition home or self-care (01) ==
LOC: CT 15:52
PROVIDERS: PCP Family Medicine; Referring Provider Family Medicine; Visit Provider Family Medicine
DX: R31.9 Hematuria, unspecified (principal); R35.0 Frequency of micturition
CPT/HCPCS: 74176

== ENCOUNTER 2024-02-07 00:53 | Emergency (ER) | payer BC, SELFPAY ==
[2024-02-07 00:54] VITALS: BP 145/91; PULSE 90; RESP 20; TEMP 35.8; O2SAT 97; BMI 38.9
[2024-02-07 00:57] VITALS: BP 145/91; PULSE 90; RESP 20; TEMP 35.8; O2SAT 97
[2024-02-07 01:12] LABS: Absolute Lymphocyte Count 1.96 X10^3/uL (0.83-4.51); Basophil# 0.08 X10^3/uL; Basophil% 0.6 % (0-1); Eosinophil# 0.19 X10^3/uL; Eosinophils% 1.3 % (0-5); Hematocrit 39.9 % (37-47); Hemoglobin 12.8 g/dL (12.0-15.0); Lymphocyte # 1.96 X10^3/ul (0.83-4.51); Lymphocyte % 13.7 % (19-41); Mean Corp Hgb Conc 32.1 g/dL (32-36); Mean Corpuscular Hgb 30.1 pg (27.0-32.0); Mean Corpuscular Volume 93.9 fL (81-99); Mean Platelet Vol. 9.1 fl (6.2-12.0); Monocyte# 1.06 X10^3/uL; Monocyte% 7.4 % (0-10); NRBC Flagged by Analyzer 0 % (0-5); Neutrophil % 76.6 % (47-70); Platelet Count 369 K/mm3 (150-450); RBC Distribution Width CV 13.2 % (11.6-14.6); RBC Distribution Width SD 45.3 fl (35.1-43.9); Red Blood Count 4.25 M/mm3 (4.2-5.4); White Blood Count 14.4 K/mm3 (4.4-11.0)
--- NOTE | 2024-02-07 01:17 | EDS_ITS ---
HPI History of Present Illness Chief Complaint: Flank Pain Informant: patient and spouse/S.O. Narrative Narrative: Patient is a 53-year-old female with past medical history of anxiety depression and rheumatoid arthritis. She was seen recently and had an outpatient CT scan on February 01 which confirmed bilateral kidney stones with a left 4 mm proximal ureteral stone. She states has been taking [id number] Tylenol and Motrin but this evening the pain increased and would not respond to home remedies and secondary to this she comes in for evaluation. [facility] Medical History Contact with and (suspected) exposure to other viral communicable diseases Wears glasses Depression Anxiety Diabetes Rheumatoid arthritis Gastric reflux Former smoker History of stress test Home Medications ?Medication ?Instructions ?Recorded ?Last Taken ?Type methotrexate sodium 2.5 mg tablet 8 mg PO MO 05/24/21 Unknown History tofacitinib 10 mg tablet (Xeljanz) 10 mg PO DAILY 05/24/21 Unknown History folic acid 20 mg capsule 20 mg PO DAILY 01/17/23 Unknown History atorvastatin 20 mg tablet 20 mg PO QHS 02/07/24 Unknown History cephalexin 500 mg capsule 500 mg PO TID 7 days #21 caps 02/07/24 Unknown Rx duloxetine 60 mg capsule,delayed 60 mg PO DAILY 02/07/24 Unknown History release hydroxychloroquine 200 mg tablet 200 mg PO BID 02/07/24 Unknown History ketorolac 10 mg tablet 10 mg PO 4X/DAY PRN pain 5 days 02/07/24 Unknown Rx #20 tabs methylprednisolone 4 mg tablets in See Rx Instructions PO PER PKG DIR 02/07/24 Unknown History a dose pack (Medrol (Kristopher)) PRN athritis ondansetron 4 mg disintegrating 4 mg PO TID PRN nausea and 02/07/24 Unknown Rx tablet vomiting #21 tabs oxycodone-acetaminophen 5 mg-325 1 tab PO Q6H PRN pain 3 days #12 02/07/24 Unknown Rx mg tablet (Percocet) tabs solriamfetol 75 mg tablet (Sunosi) 75 mg PO DAILY 02/07/24 Unknown History tamsulosin 0.4 mg capsule (Flomax) 0.4 mg PO DAILY 14 days #14 caps 02/07/24 Unknown Rx Allergy/AdvReac Type Severity Reaction Status Date / Time codeine AdvReac Other Verified 02/07/24 00:57 morphine AdvReac Other Verified 02/07/24 00:57 Family History (Updated 01/17/23 @ 06:43 by Rosemarie Freeman) Mother Cancer Father Heart disease Alcoholism in family member Surgical History History of hysteroscopy Hx of Achilles tendon repair Hx of breast reduction, elective Hx of hysterectomy Hx of appendectomy Social History Smoking Status: Former smoker ROS ROS ED Constitutional Constitutional ED: Denies chills or fever(s) Eyes Eyes: Denies change in vision ENT ENT ED: Denies sore throat Cardiovascular Cardiovascular: Denies chest pain Respiratory/Chest Respiratory/Chest: Denies cough or dyspnea Gastrointestinal Gastrointestinal: Reports abdominal pain; Denies diarrhea, nausea or vomiting Genitourinary Genitourinary ED: Denies dysuria or hematuria Musculoskeletal Musculoskeletal: Reports back pain Integumentary Denies rash Neurologic Neurologic: Denies headache(s) Hematologic/Lymphatic Hematologic/Lymphatic: Denies easy bleeding or easy bruising EXAM Physical Exam Const Vital Signs: 02/07/24 00:54 02/07/24 00:57 Temperature 96.5 F L 96.5 F L Temperature Source Temporal Temporal Pulse Rate 90 90 Respiratory Rate 20 H 20 H Blood Pressure 145/91 H 145/91 H Blood Pressure Mean 109 109 Pulse Ox 97 97 Oxygen Delivery Method Room Air Room Air Positive well nourished and well developed General Appearance ED: well developed; Negative for pallor HEENT HEENT Narrative: Normocephalic atraumatic Eyes PERRL and EOMs intact bilaterally General Eye ED: Negative for pale conjunctiva or scleral icterus Neck supple Resp normal respiratory effort and clear to auscultation bilaterally Cardio regular rate and regular rhythm Rate: other Other Details: Heart is regular rate and rhythm without murmurs rubs or gallop Radial and carotid pulses are equal and symmetric GI non-distended and no masses GI Narrative: Abdomen is soft and nondistended with normal active bowel sounds. Patient has pain on palpation along the left lateral abdomen diffusely without voluntary guarding or rigidity. No pulsatile mass or fluid wave Auscultation: normoactive bowel sounds Palpation: soft Back/Spine Back/Spine Narrative: Positive left CVA pain noted Extremity normal to inspection Neuro oriented x3, CN's II-XII intact bilaterally and no sensory deficits noted Sensorium / Orientation: alert Motor Exam: strength 5/5 throughout Psych mental status grossly normal Skin no rashes or lesions noted General Skin Exam: Negative for jaundice or pallor MDM MDM MDM Narrative Medical decision making narrative: Patient presented to the ER hypertensive otherwise with stable vitals. She had a recent outpatient CT scan which showed a 4 mm proximal ureteral stone as well as multiple stones within each kidney. In order to ensure she does not have UTI versus urosepsis versus acute kidney injury I did elect to repeat basic laboratory studies. As she was here for increased pain she was given IV fluids and IV Toradol. After the Toradol patient had resolution of her pain. Labs showed leukocytosis with slight left shift but no signs of acute kidney injury. Urine sample shows questionable infection versus contamination. The urine to be sent for culture secondary to this. However as the patient is immunosuppressed on Xeljanz she will be started on antibiotic. At this time however she is not showing findings concerning for acute kidney injury or urosepsis and her pain has resolved she will be given symptomatic medications and can see urology on an outpatient basis. History & Record Review Discussion w/independent historian: Patient and Significant other Lab Data Attestation: I reviewed the patient's lab results. Labs: Laboratory Results - last 24 hr 02/07/24 02/07/24 01:00 01:20 WBC 14.4 H RBC 4.25 Hgb 12.8 Hct 39.9 MCV 93.9 MCH 30.1 MCHC 32.1 RDW Std Deviation 45.3 H RDW Coeff of Zohreh 13.2 Plt Count 369 MPV 9.1 Immature Gran % (Auto) 0.400 Neut % (Auto) 76.6 H Lymph % (Auto) 13.7 L [place] % (Auto) 7.4 Eos % (Auto) 1.3 Baso % (Auto) 0.6 Absolute Neuts (auto) 11.0 H Absolute Lymphs (auto) 1.96 Nucleated RBC % 0 Sodium 139 Potassium 4.0 Chloride 103 Carbon Dioxide 31.0 Anion Gap 5 BUN 10 Creatinine 0.98 Estim Creat Clear Calc 70.85 Est GFR (MDRD) Af Amer 77 Est GFR (MDRD) Non-Af 64 BUN/Creatinine Ratio 10.3 Glucose 146 H Calcium 9.1 Urine Color Yellow Urine Clarity Sl. Cloudy Urine pH 5.0 Ur Specific [place] 1.020 Urine Protein 30 H Urine Glucose (UA) Normal Urine Ketones Negative Urine Occult Blood 250 H Urine Nitrite Negative Urine Bilirubin Negative Urine Urobilinogen Normal Ur Leukocyte Esterase 100 H Urine RBC 10-25 SEEN Urine WBC 5-10 SEEN Ur Squamous Epith Cells 5-10 SEEN Urine Bacteria 2+ Urine Mucus 0 SEEN Discharge Plan Triage Chief Complaint: Flank Pain ED Provider: Baltazar Schneider Dx/Rx/DC Orders Clinical Impression: Kidney stones, Renal colic, UTI (urinary tract infection), Rheumatoid arthritis Instructions: ED Kidney Stone with Pain Prescriptions: New cephalexin 500 mg capsule 500 mg PO TID 7 Days Qty: 21 0RF tamsulosin [Flomax] 0.4 mg capsule 0.4 mg PO DAILY 14 Days Qty: 14 0RF ondansetron 4 mg tablet,disintegrating 4 mg PO TID PRN (Reason: nausea and vomiting) Qty: 21 0RF ketorolac 10 mg tablet 10 mg PO 4X/DAY PRN (Reason: pain) 5 Days Qty: 20 0RF oxycodone-acetaminophen [Percocet] 5-325 mg tablet 1 tab PO Q6H PRN (Reason: pain) 3 Days Qty: 12 0RF No Action folic acid 20 mg capsule 20 mg PO DAILY methotrexate sodium 2.5 mg Tablet 8 mg PO MO Xeljanz 10 mg Tablet 10 mg PO DAILY atorvastatin 20 mg tablet 20 mg PO QHS hydroxychloroquine 200 mg tablet 200 mg PO BID duloxetine 60 mg capsule,delayed release(DR/EC) 60 mg PO DAILY Sunosi 75 mg tablet 75 mg PO DAILY methylprednisolone [Medrol (Kristopher)] 4 mg tablets,dose pack See Rx Instructions PO PER PKG DIR PRN (Reason: athritis ) Rx Instructions: orally per package directions PRN; PO PER PKG DIR Primary Care Provider: Laurie Cueva Referrals: Laurie Cueva MD [Primary Care Provider] - Grace Rm MD [Med Staff - Active Staff] - Activity Restrictions/Additional Instructions: Please take the prescribed medication as directed to control pain and potential infection. Keep yourself well-hydrated and stay active to help pass your kidney stone. If pain is uncontrolled with the prescribed medication or you develop a fever over 100.4 please return to the ER for repeat evaluation. Print Language: Moroccan Disposition Disposition: Home, Self Care
[2024-02-07] MEDS: 0.9% Normal Saline (1000mL) 1,000 ML 999 ML IV (01:21)
[2024-02-07] MEDS: Ketorolac 30 MG/ML Syringe IV (01:21)
[2024-02-07 01:27] LABS: Color, Urine Yellow (Yellow); Glucose, Dipstick Normal (Normal); Ketone-Dipstick Negative (Negative); Leukocyte Esterase-Dipstick 100 /ul (Negative); Mucous, Urine 0 SEEN /hpf (<or=2+); Nitrite-Dipstick Negative (Negative); Occult Blood-Urine 250 /ul (Negative); Protein-Dipstick 30 mg/dl (Negative); Urine Bilirubin Dipstick Negative (Negative); Urine Clarity Sl. Cloudy (Clear); Urine Urobilinogen Normal (Normal)
[2024-02-07 01:34] LABS: Bacteria 2+ /hpf (None Seen); Red Blood Cells-Urine 10-25 SEEN /hpf (0-5); Squamous Epithelial Cells - UA 5-10 SEEN /hpf (5-10); White Blood Cells 5-10 SEEN /hpf (0-5)
[2024-02-07 01:38] LABS: Anion Gap 5 (5-15); BUN 10 mg/dL (7-18); BUN/Creat Ratio 10.3 RATIO (10-20); Calcium,Total 9.1 mg/dL (8.5-10.1); Chloride 103 mmol/L (98-107); Creatinine, Serum 0.98 mg/dL (0.55-1.02); EST Glomerular Filtration Rate 64 mL/min (>60); Est Glom Filt Rate - Afr Amer 77 mL/min (>60); Estimated Creatinine Clearance 70.85 ml/min; Glucose 146 mg/dL (74-106); Sodium Level 139 mmol/L (136-145)
[2024-02-07] MEDS: Ceftriaxone 1 GM/50 ML BAG IV (02:23)
[2024-02-07 02:24] VITALS: BP 139/67; PULSE 80; RESP 16; TEMP 36.8; O2SAT 97
== END 2024-02-07 02:36 | disposition home or self-care (01) ==
PROVIDERS: Emergency Provider Emergency Medicine; PCP Family Medicine; Visit Provider Emergency Medicine
DX: N39.0 Urinary tract infection, site not specified (principal); M06.9 Rheumatoid arthritis, unspecified; E11.9 Type 2 diabetes mellitus without complications; D84.9 Immunodeficiency, unspecified; Z87.891 Personal history of nicotine dependence; N20.2 Calculus of kidney with calculus of ureter; F32.A Depression, unspecified; F41.9 Anxiety disorder, unspecified; Z79.899 Other long term (current) drug therapy; Z90.710 Acquired absence of both cervix and uterus; Z90.49 Acquired absence of other specified parts of digestive tract
CPT/HCPCS: 80048; 81001; 85025; 87086; 87088; 96361; 96374; 96375; 99283; J7030; J7050; A4216

== ENCOUNTER → 2024-02-23 | Outpatient (CLI) | payer BC, SELFPAY ==
[2024-02-23 17:38] LABS: Absolute Lymphocyte Count 1.53 X10^3/uL (0.83-4.51); Absolute Neutrophil Count 9.3 X10^3/uL (2.0-7.7); Basophil# 0.09 X10^3/uL; Basophil% 0.7 % (0-1); Eosinophil# 0.07 X10^3/uL; Eosinophils% 0.6 % (0-5); Hematocrit 40.6 % (37-47); Hemoglobin 12.8 g/dL (12.0-15.0); Lymphocyte # 1.53 X10^3/ul (0.83-4.51); Lymphocyte % 12.6 % (19-41); Mean Corp Hgb Conc 31.5 g/dL (32-36); Mean Corpuscular Hgb 29.9 pg (27.0-32.0); Mean Corpuscular Volume 94.9 fL (81-99); Mean Platelet Vol. 9.7 fl (6.2-12.0); Monocyte# 1.14 X10^3/uL; Monocyte% 9.4 % (0-10); NRBC Flagged by Analyzer 0 % (0-5); Neutrophil # 9.26 X10^3/uL (2.7-7.7); Neutrophil % 76.3 % (47-70); Platelet Count 479 K/mm3 (150-450); RBC Distribution Width CV 13.6 % (11.6-14.6); RBC Distribution Width SD 46.5 fl (35.1-43.9); Red Blood Count 4.28 M/mm3 (4.2-5.4); White Blood Count 12.1 K/mm3 (4.4-11.0)
[2024-02-23 18:19] LABS: ALB/GLOB Ratio 0.8 RATIO (0.9-2.4); AST(SGOT) 21 U/L (15-37); Alanine Aminotransfer ALT/SGPT 14 U/L (13-56); Albumin, Serum 3.6 g/dL (3.2-5.0); Alkaline Phosphatase 89 U/L (45-117); Anion Gap 8 (5-15); BUN 10 mg/dL (7-18); BUN/Creat Ratio 12.7 RATIO (10-20); Calcium,Total 9.4 mg/dL (8.5-10.1); Chloride 103 mmol/L (98-107); Creatinine, Serum 0.79 mg/dL (0.55-1.02); EST Glomerular Filtration Rate 82 mL/min (>60); Est Glom Filt Rate - Afr Amer 99 mL/min (>60); Globulin 4.4 g/dL (2.2-4.2); Glucose 122 mg/dL (74-106); Potassium 3.9 mmol/L (3.5-5.1); Sodium Level 137 mmol/L (136-145)
== END | disposition home or self-care (01) ==
PROVIDERS: PCP Family Medicine; Referring Provider Internal Medicine Rheumatology; Visit Provider Internal Medicine Rheumatology
DX: M05.70 Rheumatoid arthritis with rheumatoid factor of unspecified site without organ or systems involvement (principal); Z79.899 Other long term (current) drug therapy; K76.0 Fatty (change of) liver, not elsewhere classified
CPT/HCPCS: 36415; 80053; 85025

== ENCOUNTER → 2024-05-16 | Outpatient (CLI) | payer BC, SELFPAY ==
[2024-05-16 18:02] LABS: Absolute Lymphocyte Count 1.76 X10^3/uL (0.83-4.51); Basophil# 0.08 X10^3/uL; Basophil% 0.7 % (0-1); Eosinophil# 0.12 X10^3/uL; Hematocrit 39.8 % (37-47); Lymphocyte # 1.76 X10^3/ul (0.83-4.51); Mean Corp Hgb Conc 32.7 g/dL (32-36); Mean Corpuscular Hgb 30.4 pg (27.0-32.0); Mean Corpuscular Volume 93.2 fL (81-99); Mean Platelet Vol. 9.6 fl (6.2-12.0); Monocyte# 0.66 X10^3/uL; Monocyte% 5.6 % (0-10); NRBC Flagged by Analyzer 0 % (0-5); Neutrophil # 9.03 X10^3/uL (2.7-7.7); Neutrophil % 77.3 % (47-70); Platelet Count 385 K/mm3 (150-450); RBC Distribution Width CV 13.8 % (11.6-14.6); RBC Distribution Width SD 46.2 fl (35.1-43.9); Red Blood Count 4.27 M/mm3 (4.2-5.4); White Blood Count 11.7 K/mm3 (4.4-11.0)
[2024-05-16 19:24] LABS: ALB/GLOB Ratio 0.7 RATIO (0.9-2.4); AST(SGOT) 36 U/L (15-37); Alanine Aminotransfer ALT/SGPT 36 U/L (13-56); Albumin, Serum 3.4 g/dL (3.2-5.0); Alkaline Phosphatase 84 U/L (45-117); Anion Gap 5 (5-15); BUN 7 mg/dL (7-18); Calcium,Total 9.3 mg/dL (8.5-10.1); Chloride 101 mmol/L (98-107); Creatinine, Serum 0.78 mg/dL (0.55-1.02); EST Glomerular Filtration Rate 83 mL/min (>60); Est Glom Filt Rate - Afr Amer 101 mL/min (>60); Globulin 4.8 g/dL (2.2-4.2); Glucose 149 mg/dL (74-106); Potassium 3.6 mmol/L (3.5-5.1); Protein, Total 8.2 g/dL (6.4-8.2); Sodium Level 136 mmol/L (136-145)
== END | disposition home or self-care (01) ==
PROVIDERS: PCP Family Medicine; Referring Provider Internal Medicine Rheumatology; Visit Provider Internal Medicine Rheumatology
DX: M05.70 Rheumatoid arthritis with rheumatoid factor of unspecified site without organ or systems involvement (principal); Z79.899 Other long term (current) drug therapy
CPT/HCPCS: 36415; 80053; 85025

== ENCOUNTER → 2024-08-16 | Outpatient (CLI) | payer BC, SELFPAY ==
[2024-08-16 15:15] LABS: Absolute Lymphocyte Count 3.35 X10^3/uL (0.83-4.51); Absolute Neutrophil Count 12.6 X10^3/uL (2.0-7.7); Basophil# 0.08 X10^3/uL; Basophil% 0.5 % (0-1); Eosinophil# 0.09 X10^3/uL; Eosinophils% 0.5 % (0-5); Hematocrit 41.4 % (37-47); Hemoglobin 13.4 g/dL (12.0-15.0); Lymphocyte # 3.35 X10^3/ul (0.83-4.51); Lymphocyte % 19.7 % (19-41); Mean Corp Hgb Conc 32.4 g/dL (32-36); Mean Corpuscular Hgb 30.3 pg (27.0-32.0); Mean Corpuscular Volume 93.7 fL (81-99); Mean Platelet Vol. 9.6 fl (6.2-12.0); Monocyte# 0.81 X10^3/uL; Monocyte% 4.8 % (0-10); NRBC Flagged by Analyzer 0 % (0-5); Neutrophil # 12.59 X10^3/uL (2.7-7.7); Neutrophil % 73.9 % (47-70); Platelet Count 432 K/mm3 (150-450); RBC Distribution Width CV 14.1 % (11.6-14.6); RBC Distribution Width SD 47.6 fl (35.1-43.9); Red Blood Count 4.42 M/mm3 (4.2-5.4)
[2024-08-16 15:27] LABS: ALB/GLOB Ratio 0.8 RATIO (0.9-2.4); AST(SGOT) 16 U/L (15-37); Alanine Aminotransfer ALT/SGPT 20 U/L (13-56); Albumin, Serum 3.4 g/dL (3.2-5.0); Alkaline Phosphatase 80 U/L (45-117); Anion Gap 7 (5-15); BUN 9 mg/dL (7-18); BUN/Creat Ratio 10.8 RATIO (10-20); Calcium,Total 9.9 mg/dL (8.5-10.1); Chloride 100 mmol/L (98-107); Creatinine, Serum 0.84 mg/dL (0.55-1.02); EST Glomerular Filtration Rate 76 mL/min (>60); Est Glom Filt Rate - Afr Amer 92 mL/min (>60); Globulin 4.5 g/dL (2.2-4.2); Glucose 135 mg/dL (74-106); Potassium 4.3 mmol/L (3.5-5.1); Protein, Total 7.9 g/dL (6.4-8.2); Sodium Level 139 mmol/L (136-145)
== END | disposition home or self-care (01) ==
LOC: MTLAB 10:20
PROVIDERS: PCP Family Medicine; Referring Provider Internal Medicine Rheumatology; Visit Provider Internal Medicine Rheumatology
DX: M05.762 Rheumatoid arthritis with rheumatoid factor of left knee without organ or systems involvement (principal); Z79.899 Other long term (current) drug therapy
CPT/HCPCS: 36415; 80053; 85025

== ENCOUNTER 2024-09-14 23:23 | Emergency (ER) | payer BC, SELFPAY ==
[2024-09-14 23:25] VITALS: BP 139/72; PULSE 98; RESP 18; TEMP 36.4; O2SAT 98; BMI 43.6
--- NOTE | 2024-09-15 00:09 | EKG12_ITS ---
Test Reason : CP Blood Pressure : */* mmHG Vent. Rate : 78 BPM Atrial Rate : 78 BPM P-R Int : 136 ms QRS Dur : 76 ms QT Int : 380 ms P-R-T Axes : 54 20 47 degrees QTcB Int : 433 ms Normal sinus rhythm Normal ECG Confirmed by Dakota Anderson ([id number]), image editor SHIKHA CALDWELL ([id number]) on 09/16/2024 10:21:21 AM Referred By: RICCI Confirmed By: Dakota Anderson
[2024-09-15 00:24] VITALS: BP 136/86; PULSE 89; RESP 17; O2SAT 99
[2024-09-15 00:25] LABS: Absolute Lymphocyte Count 2.39 X10^3/uL (0.83-4.51); Absolute Neutrophil Count 12.1 X10^3/uL (2.0-7.7); Basophil# 0.08 X10^3/uL; Basophil% 0.5 % (0-1); Eosinophil# 0.05 X10^3/uL; Eosinophils% 0.3 % (0-5); Hematocrit 39.9 % (37-47); Hemoglobin 12.8 g/dL (12.0-15.0); Lymphocyte # 2.39 X10^3/ul (0.83-4.51); Lymphocyte % 15.1 % (19-41); Mean Corp Hgb Conc 32.1 g/dL (32-36); Mean Corpuscular Hgb 30.5 pg (27.0-32.0); Mean Platelet Vol. 9.1 fl (6.2-12.0); Monocyte# 1.06 X10^3/uL; Monocyte% 6.7 % (0-10); NRBC Flagged by Analyzer 0 % (0-5); Neutrophil # 12.12 X10^3/uL (2.7-7.7); Neutrophil % 76.8 % (47-70); Platelet Count 448 K/mm3 (150-450); RBC Distribution Width SD 47.8 fl (35.1-43.9); White Blood Count 15.8 K/mm3 (4.4-11.0)
--- NOTE | 2024-09-15 00:40 | RAD_ITS ---
PROCEDURE: Chest radiographs REASON FOR EXAM: Chest pain TECHNIQUE: Two views of the chest COMPARISON: 09/29/2020 FINDINGS: Cardiomediastinal silhouette is within normal limits. Lungs are clear. No sizable pneumothorax. RAD/Chest PA and Lateral IMPRESSION: No acute airspace abnormality. Reading Location: [facility]
[2024-09-15 00:47] LABS: AST(SGOT) 18 U/L (15-37); Alanine Aminotransfer ALT/SGPT 18 U/L (13-56); Albumin, Serum 3.1 g/dL (3.2-5.0); Alkaline Phosphatase 80 U/L (45-117); Anion Gap 6 (5-15); BUN 15 mg/dL (7-18); BUN/Creat Ratio 16.3 RATIO (10-20); Bilirubin, Direct 0.08 mg/dL (0.00-0.30); Calcium,Total 9.1 mg/dL (8.5-10.1); Chloride 103 mmol/L (98-107); Creatinine, Serum 0.92 mg/dL (0.55-1.02); EST Glomerular Filtration Rate 68 mL/min (>60); Est Glom Filt Rate - Afr Amer 83 mL/min (>60); Estimated Creatinine Clearance 80.58 ml/min; Globulin 4.4 g/dL (2.2-4.2); Glucose 151 mg/dL (74-106); Lipase 65 U/L (73-393); Potassium 4.4 mmol/L (3.5-5.1); Protein, Total 7.5 g/dL (6.4-8.2); Sodium Level 138 mmol/L (136-145); Troponin-I HS < 3 pg/mL (3.0-54.0)
[2024-09-15 01:00] VITALS: BP 136/85; PULSE 72; RESP 18; O2SAT 98
--- NOTE | 2024-09-15 01:46 | EX.ED.DYSGE1 ---
HPI History of Present Illness Chief Complaint: Chest Pain Informant: patient Narrative Narrative: Patient is a 53-year-old female with past medical history of gastritis anxiety and depression and rheumatoid arthritis. She states that shortly prior to arrival she developed some pain in the upper abdomen/lower chest which feels similar nature to her history of heartburn/gastritis. She states there is no radiation of the pain and she denies any nausea vomiting or diaphoresis. However she states she takes medication for this and therefore has a low concern that this is gastritis but more concerned that it could be atypical cardiac presentation and therefore comes in for evaluation [facility] Medical History (Updated 09/20/24 @ 07:[address] Baltazar Schneider, DO) Narcolepsy Contact with and (suspected) exposure to other viral communicable diseases Wears glasses Depression Anxiety Diabetes Rheumatoid arthritis Gastric reflux Former smoker History of stress test Home Medications ?Medication ?Instructions ?Recorded ?Last Taken ?Type methotrexate sodium 2.5 mg tablet 8 mg PO MO 05/24/21 Unknown History tofacitinib 10 mg tablet (Xeljanz) 10 mg PO DAILY 05/24/21 Unknown History folic acid 20 mg capsule 20 mg PO DAILY 01/17/23 Unknown History atorvastatin 20 mg tablet 20 mg PO QHS 02/07/24 Unknown History duloxetine 60 mg capsule,delayed 60 mg PO DAILY 02/07/24 Unknown History release hydroxychloroquine 200 mg tablet 200 mg PO BID 02/07/24 Unknown History modafinil 100 mg tablet 100 mg PO QDAY 08/09/24 Unknown History ropinirole 0.5 mg tablet 0.5 - 1 mg PO QHS 09/14/24 Unknown History Allergy/AdvReac Type Severity Reaction Status Date / Time morphine AdvReac Other Verified 08/09/24 13:44 Family History Mother Cancer Father Heart disease Alcoholism in family member Surgical History History of hysteroscopy Hx of Achilles tendon repair Hx of breast reduction, elective Hx of hysterectomy Hx of appendectomy Social History Smoking Status: Former smoker ROS ROS ED Constitutional Constitutional ED: Denies chills or fever(s) Eyes Eyes: Denies change in vision ENT ENT ED: Denies sore throat Cardiovascular Cardiovascular: Reports chest pain; Denies palpitations or racing heartbeat Respiratory/Chest Respiratory/Chest: Denies cough or dyspnea Gastrointestinal Gastrointestinal: Reports abdominal pain; Denies diarrhea, nausea or vomiting Genitourinary Genitourinary ED: Denies dysuria Musculoskeletal Musculoskeletal: Denies back pain Integumentary Denies rash Neurologic Neurologic: Denies headache(s) Psychiatric Psychiatric: Reports anxiety Hematologic/Lymphatic Hematologic/Lymphatic: Denies easy bleeding or easy bruising EXAM Physical Exam Const Vital Signs: 09/14/24 23:25 09/14/24 23:47 09/15/24 00:24 Temperature 97.6 F L Temperature Source Temporal Pulse Rate 98 89 Respiratory Rate 18 17 Respiratory Effort Normal Blood Pressure 139/72 H 136/86 H Blood Pressure Mean 94 102 Pulse Ox 98 99 Oxygen Delivery Method Room Air Room Air 09/15/24 01:00 Temperature Temperature Source Pulse Rate 72 Respiratory Rate 18 Respiratory Effort Blood Pressure 136/85 H Blood Pressure Mean 102 Pulse Ox 98 Oxygen Delivery Method Room Air Positive well nourished and well developed General Appearance ED: well developed; Negative for pallor HEENT HEENT Narrative: Normocephalic atraumatic Eyes PERRL and EOMs intact bilaterally General Eye ED: Negative for scleral icterus Neck supple and no JVD Neck Narrative: No nuchal rigidity or meningeal signs Chest Wall palpation of chest normal Chest Narrative: No bony deformity or crepitance noted Resp normal respiratory effort and clear to auscultation bilaterally Cardio regular rate and regular rhythm Rate: other Other Details: Heart is regular rate and rhythm without murmurs rubs or gallop Radial and carotid pulses are equal and symmetric GI non-distended and no masses GI Narrative: Mild tenderness to palpation in the midepigastric region without voluntary guarding or rigidity or pulsatile mass Auscultation: normoactive bowel sounds Palpation: soft Back/Spine no CVA tenderness Extremity normal to inspection Extremity Narrative: No asymmetric edema no pitting edema negative Homans' sign bilaterally Neuro oriented x3, CN's II-XII intact bilaterally and no sensory deficits noted Sensorium / Orientation: alert Motor Exam: strength 5/5 throughout Psych Mood & Affect: anxious Skin no rashes or lesions noted General Skin Exam: Negative for jaundice or pallor MDM MDM MDM Narrative Medical decision making narrative: Patient arrived to the ER with stable vitals and reported pain in the lower chest/upper mid abdomen. Differential diagnosis is for GERD/gastritis versus pancreatitis versus biliary colic versus acute cholecystitis versus acute coronary syndrome or cardiac dysrhythmia. There is also concern for lung pathology such as pneumonia or pneumothorax. Secondary to this an EKG was obtained which showed sinus rhythm going against cardiac dysrhythmia and no signs of ischemia. This correlates with the patient's troponin value of less than 3. Blood work shows no elevation to liver enzymes going against a biliary cause and lipase is normal going against acute pancreatitis. Chest x-ray also revealed no acute lung disease. Patient is PERC negative and therefore I felt no need for D-dimer or CTA. On reevaluation she has had improvement of her symptoms and as her overall workup is negative and she is low risk for ACS there is no need for further intervention and she is otherwise safe for discharge History & Record Review Discussion w/independent historian: Patient Lab Data Attestation: I reviewed the patient's lab results. Labs: Laboratory Results - last 24 hr 09/14/24 23:46 WBC 15.8 H RBC 4.20 Hgb 12.8 Hct 39.9 MCV 95.0 MCH 30.5 MCHC 32.1 RDW Std Deviation 47.8 H RDW Coeff of Zohreh 14.0 Plt Count 448 MPV 9.1 Immature Gran % (Auto) 0.600 Neut % (Auto) 76.8 H Lymph % (Auto) 15.1 L [place] % (Auto) 6.7 Eos % (Auto) 0.3 Baso % (Auto) 0.5 Absolute Neuts (auto) 12.1 H Absolute Lymphs (auto) 2.39 Nucleated RBC % 0 Sodium 138 Potassium 4.4 Chloride 103 Carbon Dioxide 29.0 Anion Gap 6 BUN 15 Creatinine 0.92 Estim Creat Clear Calc 80.58 Est GFR (MDRD) Af Amer 83 Est GFR (MDRD) Non-Af 68 BUN/Creatinine Ratio 16.3 Glucose 151 H Calcium 9.1 Total Bilirubin 0.20 Direct Bilirubin 0.08 AST 18 ALT 18 Alkaline Phosphatase 80 Troponin I High Sens < 3 L Total Protein 7.5 Albumin 3.1 L Globulin 4.4 H Lipase 65 L Radiography Diagnostic Testing: Clinical Impression(s) from Imaging Studies Chest X-Ray 09/15/24 00:40 IMPRESSION: No acute airspace abnormality. Reading Location: [facility] Chest x-ray as interpreted by the emergency medicine physician reveals no acute infiltrate pneumothorax or pleural effusion Discharge Plan Triage Chief Complaint: Chest Pain ED Provider: Baltazar Schneider Dx/Rx/DC Orders Clinical Impression: Nonspecific chest pain, Rheumatoid arthritis, Anxiety and depression, GERD (gastroesophageal reflux disease) Instructions: ED Chest Pain, Uncertain Cause Prescriptions: No Action folic acid 20 mg capsule 20 mg PO DAILY modafinil 100 mg tablet 100 mg PO QDAY methotrexate sodium 2.5 mg Tablet 8 mg PO MO Xeljanz 10 mg Tablet 10 mg PO DAILY ropinirole 0.5 mg tablet 0.5 - 1 mg PO QHS atorvastatin 20 mg tablet 20 mg PO QHS hydroxychloroquine 200 mg tablet 200 mg PO BID duloxetine 60 mg capsule,delayed release(DR/EC) 60 mg PO DAILY Primary Care Provider: Laurie Cueva Referrals: Laurie Cueva MD [Primary Care Provider] - Print Language: Filipino Disposition Disposition: Home, Self Care Discharge Date/Time: 09/15/24 01:58
[2024-09-15 01:58] VITALS: BP 136/85; PULSE 74; RESP 18; TEMP 36.7; O2SAT 98
== END 2024-09-15 01:58 | disposition home or self-care (01) ==
PROVIDERS: Emergency Provider Emergency Medicine; PCP Family Medicine; Visit Provider Emergency Medicine
DX: R07.9 Chest pain, unspecified (principal); M06.9 Rheumatoid arthritis, unspecified; E11.9 Type 2 diabetes mellitus without complications; K21.9 Gastro-esophageal reflux disease without esophagitis; Z87.891 Personal history of nicotine dependence; Z90.710 Acquired absence of both cervix and uterus; F41.8 Other specified anxiety disorders; Z79.899 Other long term (current) drug therapy; Z90.49 Acquired absence of other specified parts of digestive tract
CPT/HCPCS: 71046; 80048; 80076; 83690; 84484; 85025; 93005; 99283

== ENCOUNTER → 2024-11-08 | Outpatient (CLI) | payer BC, SELFPAY ==
[2024-11-08 12:37] LABS: Absolute Lymphocyte Count 2.92 X10^3/uL (0.83-4.51); Absolute Neutrophil Count 7.4 X10^3/uL (2.0-7.7); Basophil# 0.08 X10^3/uL; Basophil% 0.7 % (0-1); Eosinophils% 0.9 % (0-5); Hematocrit 39.4 % (37-47); Hemoglobin 12.7 g/dL (12.0-15.0); Lymphocyte # 2.92 X10^3/ul (0.83-4.51); Lymphocyte % 26.3 % (19-41); Mean Corp Hgb Conc 32.2 g/dL (32-36); Mean Corpuscular Hgb 30.8 pg (27.0-32.0); Mean Corpuscular Volume 95.4 fL (81-99); Mean Platelet Vol. 9.7 fl (6.2-12.0); Monocyte# 0.52 X10^3/uL; Monocyte% 4.7 % (0-10); NRBC Flagged by Analyzer 0 % (0-5); Neutrophil # 7.43 X10^3/uL (2.7-7.7); Platelet Count 414 K/mm3 (150-450); RBC Distribution Width SD 48.8 fl (35.1-43.9); Red Blood Count 4.13 M/mm3 (4.2-5.4); White Blood Count 11.1 K/mm3 (4.4-11.0)
[2024-11-08 13:24] LABS: ALB/GLOB Ratio 1.5 RATIO (0.9-2.4); AST(SGOT) 32 U/L (<=31); Alanine Aminotransfer ALT/SGPT 19 U/L (<=34); Albumin, Serum 4.1 g/dL (3.5-5.0); Alkaline Phosphatase 68 U/L (35-104); Anion Gap 12 (5-15); BUN 7 mg/dL (4-19); BUN/Creat Ratio 9.3 RATIO (10-20); Calcium,Total 9.3 mg/dL (7.6-11.0); Carbon Dioxide 26.7 mmol/L (21.0-32.0); Chloride 102 mmol/L (98-108); Creatinine, Serum 0.79 mg/dL (0.70-1.20); EST Glomerular Filtration Rate 91 (>60); Globulin 2.7 g/dL (2.2-4.2); Glucose 213 mg/dL (70-99); Potassium 3.6 mmol/L (3.3-5.1); Protein, Total 6.9 g/dL (5.9-8.4); Sodium Level 141 mmol/L (133-145); Total Bilirubin 0.22 mg/dL (0.00-1.30)
== END | disposition home or self-care (01) ==
LOC: MTLAB 10:18
PROVIDERS: PCP Family Medicine; Referring Provider Internal Medicine Rheumatology; Visit Provider Internal Medicine Rheumatology
DX: M05.762 Rheumatoid arthritis with rheumatoid factor of left knee without organ or systems involvement (principal); Z79.899 Other long term (current) drug therapy; K76.0 Fatty (change of) liver, not elsewhere classified
CPT/HCPCS: 36415; 80053; 85025

== ENCOUNTER → 2024-12-05 | Outpatient (CLI) | payer BC, SELFPAY ==
--- NOTE | 2024-12-05 16:55 | RAD_ITS ---
PROCEDURE: HIP, UNI W/ PELVIS 2-3 VIEWS 12/05/2024 REASON FOR EXAM: PAIN AND WEAKNESS TECHNIQUE: AP pelvis and two views right hip, 3 total images COMPARISON: 07/13/2021 FINDINGS: Bilateral symmetric appearing SI joints and pubic symphysis appear within limits. The hip joint spaces appear within limits. No fracture or dislocation. RAD/HIP, UNI W/ Pelvis 2-3 Views IMPRESSION: Study appears within limits. Reading Location: [id number]
== END | disposition home or self-care (01) ==
LOC: MTRAD 16:54
DX: R29.898 Other symptoms and signs involving the musculoskeletal system (principal)
CPT/HCPCS: 73502

== ENCOUNTER → 2024-12-12 | Outpatient (CLI) | payer BC, SELFPAY ==
[2024-12-12 12:11] LABS: Absolute Lymphocyte Count 2.44 X10^3/uL (0.83-4.51); Absolute Neutrophil Count 8.9 X10^3/uL (2.0-7.7); Basophil# 0.09 X10^3/uL; Basophil% 0.7 % (0-1); Eosinophil# 0.16 X10^3/uL; Eosinophils% 1.3 % (0-5); Hematocrit 41.6 % (37-47); Hemoglobin 13.3 g/dL (12.0-15.0); Lymphocyte # 2.44 X10^3/ul (0.83-4.51); Lymphocyte % 19.8 % (19-41); Mean Corpuscular Volume 93.7 fL (81-99); Mean Platelet Vol. 9.4 fl (6.2-12.0); Monocyte# 0.68 X10^3/uL; Monocyte% 5.5 % (0-10); NRBC Flagged by Analyzer 0 % (0-5); Neutrophil # 8.91 X10^3/uL (2.7-7.7); Neutrophil % 72.1 % (47-70); Platelet Count 387 K/mm3 (150-450); RBC Distribution Width CV 13.4 % (11.6-14.6); RBC Distribution Width SD 45.9 fl (35.1-43.9); Red Blood Count 4.44 M/mm3 (4.2-5.4); White Blood Count 12.4 K/mm3 (4.4-11.0)
[2024-12-12 12:46] LABS: AST(SGOT) 20 U/L (<=31); Alanine Aminotransfer ALT/SGPT 10 U/L (<=34); Albumin, Serum 3.9 g/dL (3.5-5.0); Alkaline Phosphatase 89 U/L (35-104); Anion Gap 13 (5-15); BUN 6 mg/dL (4-19); BUN/Creat Ratio 6.5 RATIO (10-20); Calcium,Total 8.6 mg/dL (7.6-11.0); Chloride 98 mmol/L (98-108); Creatinine, Serum 0.86 mg/dL (0.70-1.20); EST Glomerular Filtration Rate 81 (>60); Globulin 3.7 g/dL (2.2-4.2); Glucose 242 mg/dL (70-99); Potassium 3.7 mmol/L (3.3-5.1); Protein, Total 7.5 g/dL (5.9-8.4); Sodium Level 137 mmol/L (133-145); Total Bilirubin 0.35 mg/dL (0.00-1.30)
[2024-12-14 13:08] LABS: QNTFERON TB Mitogen Value > 10.00 IU/mL (.); QNTFERON TB Nil Value 0.07 IU/mL (.); QNTFERON TB1+ Ag Value 0.06 IU/mL (.); QNTFERON TB2+ Ag Value 0.06 IU/mL (.); QNTIFERON TB Positive Criteria Negative (Negative)
== END | disposition home or self-care (01) ==
LOC: MTLAB 10:49
PROVIDERS: Referring Provider Internal Medicine Rheumatology; Visit Provider Internal Medicine Rheumatology
DX: M05.70 Rheumatoid arthritis with rheumatoid factor of unspecified site without organ or systems involvement (principal); Z79.899 Other long term (current) drug therapy
CPT/HCPCS: 36415; 80053; 85025; 86480

== ENCOUNTER → 2025-01-10 | Outpatient (CLI) | payer BC, SELFPAY ==
[2025-01-10 10:56] LABS: Hemoglobin A1c 7.1 % (<=5.6)
[2025-01-10 10:58] LABS: Cholesterol 178 mg/dL (<=200); High Density Lipoprotein 45 mg/dL; Low Density Lipoprotein Calc. 80 mg/dL; Triglycerides 263 mg/dL; Very Low Density Lipoprotein 53 mg/dL (5-40); cholesterol:hdl ratio screen 3.92
== END | disposition home or self-care (01) ==
LOC: MTLAB 09:00
DX: Z13.1 Encounter for screening for diabetes mellitus (principal); Z13.220 Encounter for screening for lipoid disorders
CPT/HCPCS: 36415; 80061; 83036

== ENCOUNTER 2025-01-14 16:50 | Outpatient (CLI) | payer BC, SELFPAY ==
[2025-01-14 19:58] LABS: Microalbumin,Random Urine < 12.0 mg/L (NO RANGE EST.); Microalbumin:Creatinine Ratio UNABLE TO CALCULATE mg/g CRE
== END 2025-01-14 23:59 | disposition home or self-care (01) ==
LOC: LABSPEC 16:52
PROVIDERS: PCP Family Medicine; Referring Provider Family Medicine; Visit Provider Family Medicine
DX: E11.9 Type 2 diabetes mellitus without complications (principal)
CPT/HCPCS: 82043; 82570

== ENCOUNTER → 2025-02-27 | Outpatient (CLI) | payer BC, SELFPAY ==
[2025-02-27 18:18] LABS: Hematocrit 42.2 % (37-47); Hemoglobin 13.3 g/dL (12.0-15.0); Immature Granulocytes Count 0.050 X10^3/uL (0.0-0.0); Mean Corp Hgb Conc 31.5 g/dL (32-36); Mean Corpuscular Volume 92.3 fL (81-99); Mean Platelet Vol. 10.0 fl (6.2-12.0); NRBC Flagged by Analyzer 0 % (0-5); Platelet Count 399 K/mm3 (150-450); RBC Distribution Width CV 13.4 % (11.6-14.6); RBC Distribution Width SD 45.0 fl (35.1-43.9); Red Blood Count 4.57 M/mm3 (4.2-5.4); White Blood Count 11.6 K/mm3 (4.4-11.0)
[2025-02-27 18:30] LABS: AST(SGOT) 20 U/L (<=31); Alanine Aminotransfer ALT/SGPT 11 U/L (<=34); Albumin, Serum 4.0 g/dL (3.5-5.0); Alkaline Phosphatase 96 U/L (35-104); BUN 3 mg/dL (4-19); BUN/Creat Ratio 3.3 RATIO (10-20); Calcium,Total 9.9 mg/dL (7.6-11.0); Globulin 3.3 g/dL (2.2-4.2); Glucose 136 mg/dL (70-99)
[2025-02-27 18:31] LABS: Anion Gap 14 (5-15); Carbon Dioxide 25.1 mmol/L (21.0-32.0); Chloride 102 mmol/L (98-108); Potassium 4.1 mmol/L (3.3-5.1)
== END | disposition home or self-care (01) ==
LOC: MTLAB 14:12
PROVIDERS: PCP Family Medicine; Referring Provider Internal Medicine Rheumatology; Visit Provider Internal Medicine Rheumatology
DX: M05.70 Rheumatoid arthritis with rheumatoid factor of unspecified site without organ or systems involvement (principal); Z79.899 Other long term (current) drug therapy
CPT/HCPCS: 36415; 80053; 85025

== ENCOUNTER 2025-03-26 09:54 | Day surgery (SDC) | payer BC, SELFPAY ==
[2025-03-26] VITALS (9 sets, daily range): BP systolic 93–134; BP diastolic 56–82; PULSE 66–88; RESP 12–18; TEMP 35.8–36.7; O2SAT 93–100; BMI 42.0
--- NOTE | 2025-03-26 10:12 | HP.PCM_ITS ---
HPI - General General Date of Admission: 03/26/25 Date of Service: 03/26/25 Chief Complaint: Surveillance colonoscopy HPI Narrative STEPHAN ENGLE, is a 54 F who presents today for follow-up colonoscopy. She had a colonoscopy 5 years ago and she had adenomatous polyps that removed during that time. Has not had abdominal pain, cramping, chest pain or shortness of breath. She does have a past medical history of rheumatoid arthritis and is on Orencia. She also takes methotrexate. On occasion she also takes prednisone. [facility] Medical History CPAP (continuous positive airway pressure) dependence Sleep apnea Low iron High cholesterol Restless legs Heartburn Narcolepsy Contact with and (suspected) exposure to other viral communicable diseases Wears glasses Depression Anxiety Diabetes Rheumatoid arthritis Gastric reflux Former smoker History of stress test Home Medications ?Medication ?Instructions ?Recorded ?Last Taken ?Type methotrexate sodium 2.5 mg tablet 8 mg PO MO 05/24/21 Unknown History folic acid 20 mg capsule 20 mg PO DAILY 01/17/23 Unkn own History atorvastatin 20 mg tablet 20 mg PO QHS 02/07/24 Unknow n History duloxetine 60 mg capsule,delayed 60 mg PO DAILY Unknown History release hydroxychloroquine 200 mg tablet 200 mg PO BID 4 Unknown History modafinil 100 mg tablet 50 mg PO BID 08/09/24 Unknow n History ropinirole 0.5 mg tablet 0.5 - 1 mg PO QHS 09/14/24 U nknown History abatacept 125 mg/mL subcutaneous 125 mg subcut QWEEK A RTHRITIS 03/20/25 Unknown History auto-injector (Orencia ClickJect) glipizide 5 mg tablet 10 mg PO DAILY 03/20/25 Unkn own History prednisone 10 mg tablet 10 mg PO DAILY PRN RA Unknown History Allergy/AdvReac Type Severity Reaction Status Date / Time morphine AdvReac Other Verified 03/20/25 13:27 Family History Mother Cancer Father Heart disease Alcoholism in family member Surgical History History of colonoscopy History of hysteroscopy Hx of Achilles tendon repair Hx of breast reduction, elective Hx of hysterectomy Hx of appendectomy Social History Smoking Status: Former smoker ROS Constitutional Constitutional: Denies fatigue, fever(s), poor appetite, weight gain or weight loss Gastrointestinal Gastrointestinal: Denies belching, bloating, change in bowel habits, change in stool character, chewing difficulty, coffee ground emesis, constipation, cramping, diarrhea, dyspepsia, dysphagia, early satiety, excessive flatus, fecal incontinence, heartburn, hematemesis, hematochezia, hemorrhoids, loose stools, melena, nausea, odynophagia, rectal bleeding, tenesmus, vomiting or weight changes Physical Exam Const alert, oriented x3, no apparent distress and healthy appearing General Appearance: cooperative GI normal to inspection, nondistended, normoactive bowel sounds, soft to palpation, non-tender and non-distended Percussion: normal to percussion Rectal Exam: deferred Assessment & Plan Assessment/Plan (1) Personal history of colonic polyps: PLAN: She was explained alternatives, risk and benefits include not withstanding bleeding, infection, sepsis, perforation, need for brain surgery and . She have an ASA 3.
[2025-03-26] MEDS: Lactated Ringers 1,000 ML 15 ML IV (10:31)
--- NOTE | 2025-03-26 10:38 | PCM.PRE.AN2 ---
ASA Classification* ASA Classification ASA Classification: 3 (BMI > 40, HLD, RLS, RA, SEVERE TATIANA, T2DM) Assessment & Plan Anesthesia* Anesthesia Assessment Anesthesia Assessment: Discussed sedation and/or anesthesia options, risks, benefits, and alternatives with patient/parents/legal guardian/POA. Questions invited. The patient/parents/legal guardian/POA seems to understand and agrees to proceed with anesthesia plan. Reviewed the physical assessment, medical history, allergy history and patient home medications list prior to surgery/procedure/anesthetic and documented any changes. Performed airway and anesthesia risk assessments. Anesthesia Type Anesthesia Type: MAC History Source History Obtained from:: Patient and Chart Anesthesia Focused Assessment* Temperature: 96.5 F Pulse Rate: 88 Blood Pressure: 134/82 Respiratory Rate: 16 Pulse Ox: 95 Oxygen Delivery Method: Room Air Airway Assessment Mouth opens: >3 cm Mallampati Score: III Neck Range of motion (ROM): Full ROM Labs Anesthesia Preop lab: CBC WBC 11.6 K/mm3 (4.4-11.0) H 02/27/25 14:02/27/25 RBC 4.57 M/mm3 (4.2-5.4) 02/27/25 14:21 02/27/25 Hgb 13.3 g/dL (12.0-15.0) 02/27/25 14:21 02/27/25 Hct 42.2 % (37-47) 02/27/25 14:21 02/27/25 Plt Count 399 K/mm3 (150-450) 02/27/25 14:21 02/27/25 CHEMISTRY Potassium 4.1 mmol/L (3.3-5.1) 02/27/25 14:21 02/27/25 Sodium 141 mmol/L (133-145) 02/27/25 14:02/27/25 Magnesium 2.1 mg/dL (1.8-2.4) 02/14/17 16:02/14/17 BUN 3 mg/dL (4-19) L 02/27/25 14:21 02/27/25 Creatinine 0.84 mg/dL (0.70-1.20) 02/27/25 14:21 02/27/25 Glucose 136 mg/dL (70-99) H 02/27/25 14:21 02/27/25 TSH 1.03 uIU/mL (0.358-3.74) 03/25/22 16:45 03/25/22 COAG Pre-Assessment Diagnosis/Proposed Procedure Planned Operative Procedure(s): CSCOPE Anesthesia History 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 When Was Last Pacemaker Check QUESTION #4 FULL TEXT: You/Your Family Experience fever (hyperthermia) with Anesthesia Last Oral Intake Last Oral intake: Last Oral Intake NPO since 07:30 03/26/25 10:26 Meds taken in AM with sips of Yes 03/26/25 10:26 water? 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 Female Yes 03/20/25 13:31 HX of Motion Sickness Yes 03/20/25 13:31 HX of N/V After Surgery No 03/20/25 13:31 Non-Smoker Yes 03/20/25 13:31 Duration of Surgery greater No 03/20/25 13:31 than 60 minutes Number of Risk Factors 3 03/20/25 13:31 PONV Score Moderate Risk 03/20/25 13:31 Height & Weight Height & Weight: Anesthesia: Height & Weight Height 5 ft 1 in 03/26/25 10:26 Weight: 101 kg 03/26/25 10:26 Body Mass Index (BMI) 42.0 03/26/25 10:26 Respiratory Assessment Respiratory Assessment - plant and maintenance technician: Respiratory Tract Infection Hx - plant and maintenance technician Hx Respiratory Tract Infection No 03/20/25 13:31 STOP Sleep Apnea STOP Sleep Apnea - plant and maintenance technician: STOP Sleep Apnea - plant and maintenance technician Hx Hypertension No 03/20/25 13:31 Hx Sleep Apnea Yes 03/20/25 13:31 CPAP Yes 03/20/25 13:31 BIPAP No 03/20/25 13:31 Do you snore loudly (louder than talking or can be heard Do you often feel tired/ fatigued/ sleepy during daytime? Has anyone observed you stop breathing during sleep? STOP Results Positive 03/20/25 13:31 QUESTION #5 FULL TEXT : Do you snore loudly (louder than talking or can be heard through closed doors)? 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 Specify any problems Hx of Preganancy in last 3 N/A 03/20/25 13:31 Months Nurse Filling Out Transfusion NBUCHER 03/20/25 13:31 & Questions: Date: 03/20/25 03/20/25 13:31 Time: 13:32 03/20/25 13:31 Patient unable to answer at this time (ie. confused, unrespo /Reproduction History /Reproductive History - plant and maintenance technician: /Reproductive Hx- plant and maintenance technician Hx Now No 03/20/25 13:31 Gestational Age (in weeks): EDC: Hx Hx Para Hx Section SAB No 03/20/25 13:31 Active Medications Active Medications: Current Medications Generic Name Dose Route Start Last Admin Trade Name Freq PRN Reason Stop Dose Admin Lactated Ringer's 1,000 mls @ 15 mls/hr 03/26/25 10:00 03/26/25 10:31 IV 15 mls/hr .Q48H MARYA Administration PFSH Medical History CPAP (continuous positive airway pressure) dependence Sleep apnea Low iron High cholesterol Restless legs Heartburn Narcolepsy Contact with and (suspected) exposure to other viral communicable diseases Wears glasses Depression Anxiety Diabetes Rheumatoid arthritis Gastric reflux Former smoker History of stress test Home Medications ?Medication ?Instructions ?Recorded ?Last Taken ?Type methotrexate sodium 2.5 mg tablet 8 mg PO MO 05/24/21 03/24/25 History folic acid 20 mg capsule 20 mg PO DAILY 01/17/23 03/24/25 History atorvastatin 20 mg tablet 20 mg PO QHS 02/07/24 03/24/25 History duloxetine 60 mg capsule,delayed 60 mg PO DAILY 02/07/24 03/24/25 History release hydroxychloroquine 200 mg tablet 200 mg PO BID 02/07/24 03/25/25 History modafinil 100 mg tablet 50 mg PO BID 08/09/24 03/25/25 History ropinirole 0.5 mg tablet 0.5 - 1 mg PO QHS 09/14/24 03/24/25 History abatacept 125 mg/mL subcutaneous 125 mg subcut QWEEK ARTHRITIS 03/20/25 03/18/25 History auto-injector (Orencia ClickJect) glipizide 5 mg tablet 10 mg PO DAILY 03/20/25 03/25/25 History prednisone 10 mg tablet 10 mg PO DAILY PRN RA 03/20/25 Unknown History pantoprazole 40 mg tablet,delayed 40 mg PO DAILY 03/26/25 03/25/25 History release Allergy/AdvReac Type Severity Reaction Status Date / Time morphine AdvReac Other Verified 03/26/25 10:23 Family History Mother Cancer Father Heart disease Alcoholism in family member Surgical History History of colonoscopy History of hysteroscopy Hx of Achilles tendon repair Hx of breast reduction, elective Hx of hysterectomy Hx of appendectomy Social History Smoking Status: Former smoker Review of Systems (Anesthesia) ROS Narrative System reviewed and no additional complaints, except as documented. Physical Exam Const alert and oriented x3 Nutritional Appearance: obese Resp normal respiratory effort, normal air movement and clear to auscultation bilaterally Cardio regular rate, regular rhythm, no murmurs and diaphoretic
--- NOTE | 2025-03-26 11:00 | COLBX_PTH ---
PATIENT: STEPHAN ENGLE LOC: EN U#:[id number] AGE/SX: 54/F ROOM: RE03/26/[address]: Dr. Haim Mcgrath DO : 1970 BED: DIS: 03/26/2025 SPEC #: [id number] RECD: 03/26/25 12:40 STATUS: JESUS REArvind #: [id number] CARROLL: 03/26/25 11:[address]: Haim Mcgrath DEPT: SURGICAL PATHOLOGY RECD BY: Harinder Bermeo ENTERED: 03/26/25 14:40 SP TYPE: COLON BX OTHR DR: Sandra Mensah MD Tissues: A - COLON BIOPSY Procedures: Surgery Specimen Level IV HEADER OPERATION: Colonoscopy with biopsy PRE-OP DIAGNOSIS: Personal history of colonic polyps TISSUE SUBMITTED: A- Hepatic flexure polyp biopsy MICROSCOPIC DIAGNOSIS A. Hepatic flexure, polyp, biopsy: Tubular adenoma. MICROSCOPIC DESCRIPTION Slides are reviewed. GROSS DESCRIPTION A. Received in fixative is one container labeled with the patient's name and designated Hepatic flexure polyp biopsy. The specimen consists of one irregular fragment of light melo soft tissue that measures 0.4 cm. The specimen is totally submitted in one cassette. ID 03/26/2025 CPT:48880
--- NOTE | 2025-03-26 11:31 | PCM.POST.ANE ---
Anesthesia: Postop Eval I Current Vital Signs Temperature: 98 F Pulse Rate: 75 Blood Pressure: 113/68 Respiratory Rate: 16 Pulse Ox: 93 Oxygen Delivery Method: Room Air Assessment Airway patent: Yes Spontaneous unlabored respirations: Yes Mental status: Asleep nausea: No Vomiting: No Anesthesia Complication: No Fluid Hydration Crystalloid volume administer (ml): 500 Total IV fluid infused: 500 Progress Note Anesthesia document: Postop Eval 1 completed: Yes
--- NOTE | 2025-03-26 11:38 | OP.COLON_ITS ---
Patient Name: Grace Alcocer Procedure Date: 03/26/2025 10:55 AM Date of : 1970 Age: 54 Procedure: Colonoscopy Indications: High risk colon cancer surveillance: Personal history of colonic polyps Providers: Haim Mcgrath DO Referring MD: Sandra Mensah Md Medicines: Monitored Anesthesia Care Patient Profile: This is a 54 year old female. Refer to note in patient chart for documentation of history and physical. Last Colonoscopy: 5 years ago. Complications: No immediate complications. Procedure: Pre-Anesthesia Assessment: - Prior to the procedure, a History and Physical was performed, and patient medications and allergies were reviewed. The patient is competent. The risks and benefits of the procedure and the sedation options and risks were discussed with the patient. All questions were answered and informed consent was obtained. Patient identification and proposed procedure were verified by the physician in the pre-procedure area. Mental Status Examination: alert and oriented. Airway Examination: normal oropharyngeal airway and neck mobility. Respiratory Examination: clear to auscultation. CV Examination: normal. Prophylactic Antibiotics: The patient does not require prophylactic antibiotics. Prior Anticoagulants: The patient has taken no anticoagulant or antiplatelet agents except for NSAID medication. ASA Grade Assessment: II - A patient with mild systemic disease. After reviewing the risks and benefits, the patient was deemed in satisfactory condition to undergo the procedure. The anesthesia plan was to use monitored anesthesia care (MAC). Immediately prior to administration of medications, the patient was re-assessed for adequacy to receive sedatives. The heart rate, respiratory rate, oxygen saturations, blood pressure, adequacy of pulmonary ventilation, and response to care were monitored throughout the procedure. The physical status of the patient was re-assessed after the procedure. After I obtained informed consent, the scope was passed under direct vision. Throughout the procedure, the patient's blood pressure, pulse, and oxygen saturations were monitored continuously. The Colonoscope was introduced through the anus and advanced to the cecum, identified by appendiceal orifice and ileocecal valve. The colonoscopy was performed without difficulty. The patient tolerated the procedure well. The quality of the bowel preparation was adequate. Scope In: 11:06:47 AM Scope Withdrawal Time 0 hours 7 minutes 36 seconds Scope Out: 11:19:01 AM Total Procedure Duration Time 0 hours 12 minutes 14 seconds Findings: The perianal and digital rectal examinations were normal. A 7 mm polyp was found in the hepatic flexure. The polyp was sessile. The polyp was removed with a jumbo cold forceps. Resection and retrieval were complete. Verification of patient identification for the specimen was done. Estimated blood loss was minimal. Multiple small and large-mouthed diverticula were found in the recto-sigmoid colon and sigmoid colon. Impression: - One 7 mm polyp at the hepatic flexure, removed with a jumbo cold forceps. Resected and retrieved. - Diverticulosis in the recto-sigmoid colon and in the sigmoid colon. Recommendation: - Discharge patient to home. - Repeat colonoscopy in 5 years for surveillance. - Continue present medications. Procedure Code(s): --- Professional --- 80306, Colonoscopy, flexible; with biopsy, single or multiple CPT copyright 2021 [employer]. All rights reserved. The codes documented in this report are preliminary and upon outsole leveler review may be revised to meet current compliance requirements. Haim Mcgrath DO 03/26/2025 11:37:37 AM This report has been signed electronically. Number of Addenda: 0 Note Initiated On: 03/26/2025 10:55 AM
--- NOTE | 2025-03-26 11:38 | OP.PROVAT_ITS ---
03/26/2025 Sandra Mensah Md Re : Colonoscopy procedure for Grace Josephr Rodrick This procedure was performed on Wednesday, March 26, 2025. My impressions and recommendations are as follows: Impressions : - One 7 mm polyp at the hepatic flexure, removed with a jumbo cold forceps. Resected and retrieved. - Diverticulosis in the recto-sigmoid colon and in the sigmoid colon. Recommendations : - Discharge patient to home. - Repeat colonoscopy in 5 years for surveillance. - Continue present medications. My findings are described in the full procedure note, which is enclosed. If I can be of further assistance, please feel free to contact me at . Sincerely, Haim Mcgrath, 03/26/2025 11:37:37 AM This report has been signed electronically.
--- NOTE | 2025-03-26 12:45 | PCM.POSTANE2 ---
Anesthesia Postop Eval I Sum Postop Eval Completion status Anesthesia document: Postop Eval 1 completed: Yes Anesthesia Postop Eval I Summary Anesthesia Postop Eval I Summary: Anesthesia Postop Eval I: Assessment Summary Airway patent Yes 03/26/25 11:32 [email or web address] Spontaneous unlabored Yes 03/26/25 11:32 [email or web address] respirations Mental status Asleep 03/26/25 11:32 [email or web address] nausea No 03/26/25 11:32 [email or web address] Vomiting No 03/26/25 11:32 [email or web address] Anesthesia Postop Eval I: Fluid Summary Crystalloid volume administer 500 03/26/25 11:32 [email or web address] (ml) Colloids volume administered ( ml) Blood Product volume administered (ml) Total IV fluid infused 500 03/26/25 11:32 [email or web address] Anesthesia Postop Eval I: Summary Notes Anesthesia Complication No 03/26/25 11:32 [email or web address] Anesthesia Complication Comment: Post-operative progress note Anesthesia: Postop Eval II Evaluation Mental status: Awake Pain Level: 0 nausea: No Vomiting: No Complications Anesthesia Complication: No
== END 2025-03-26 12:16 | disposition home or self-care (01) ==
LOC: EN 09:55 → AC 09:56
PROVIDERS: PCP Family Medicine; Referring Provider Family Medicine; Visit Provider Internal Medicine Gastroenterology
PROC: 0DJD8ZZ Inspection of Lower Intestinal Tract, Via Natural or Artificial Opening Endoscopic (ICD-10-PCS; CPT 45378; principal; 2025-03-26 10:55)
DX: Z12.11 Encounter for screening for malignant neoplasm of colon (principal); M06.9 Rheumatoid arthritis, unspecified; E11.9 Type 2 diabetes mellitus without complications; D12.3 Benign neoplasm of transverse colon; K57.30 Diverticulosis of large intestine without perforation or abscess without bleeding; K21.9 Gastro-esophageal reflux disease without esophagitis; E78.00 Pure hypercholesterolemia, unspecified; F32.A Depression, unspecified; F41.9 Anxiety disorder, unspecified; Z79.52 Long term (current) use of systemic steroids; Z79.84 Long term (current) use of oral hypoglycemic drugs; Z79.899 Other long term (current) drug therapy; Z86.0100 Personal history of colon polyps, unspecified; Z87.891 Personal history of nicotine dependence
CPT/HCPCS: 45380; 82962; 88305; J2405

== ENCOUNTER → 2025-06-04 | Outpatient (CLI) | payer BC, SELFPAY ==
[2025-06-04 18:14] LABS: Hematocrit 42.2 % (37-47); Hemoglobin 13.4 g/dL (12.0-15.0); Immature Granulocytes Count 0.020 X10^3/uL (0.0-0.0); Mean Corp Hgb Conc 31.8 g/dL (32-36); Mean Corpuscular Volume 89.8 fL (81-99); Mean Platelet Vol. 9.7 fl (6.2-12.0); NRBC Flagged by Analyzer 0 % (0-5); Platelet Count 445 K/mm3 (150-450); RBC Distribution Width CV 13.5 % (11.6-14.6); RBC Distribution Width SD 44.3 fl (35.1-43.9); Red Blood Count 4.70 M/mm3 (4.2-5.4); White Blood Count 9.7 K/mm3 (4.4-11.0)
[2025-06-04 18:16] LABS: AST(SGOT) 24 U/L (<=31); Alanine Aminotransfer ALT/SGPT 10 U/L (<=34); Albumin, Serum 4.2 g/dL (3.5-5.0); Alkaline Phosphatase 93 U/L (35-104); Anion Gap 13 (5-15); BUN 5 mg/dL (4-19); BUN/Creat Ratio 6.5 RATIO (10-20); Calcium,Total 10.0 mg/dL (7.6-11.0); Carbon Dioxide 26.3 mmol/L (21.0-32.0); Chloride 103 mmol/L (98-108); Globulin 3.4 g/dL (2.2-4.2); Glucose 89 mg/dL (70-99); Potassium 4.3 mmol/L (3.3-5.1)
== END | disposition home or self-care (01) ==
LOC: MTLAB 15:02
PROVIDERS: PCP Family Medicine; Referring Provider Internal Medicine Rheumatology; Visit Provider Internal Medicine Rheumatology
DX: M05.70 Rheumatoid arthritis with rheumatoid factor of unspecified site without organ or systems involvement (principal); Z79.899 Other long term (current) drug therapy
CPT/HCPCS: 36415; 80053; 85025